=== PATIENT | male | born 1940 | race Caucasian/White ===

== ENCOUNTER 2020-08-03 11:55 | Inpatient (IN) | payer MEDICARE, OTHER, SELFPAY ==
[2020-08-03] VITALS (16 sets, daily range): BP systolic 68–151; BP diastolic 50–94; PULSE 68–97; RESP 17–27; TEMP 36.6–37.1; O2SAT 92–97; BMI 23.7
--- NOTE | 2020-08-03 12:08 | XRR_ITS ---
PROCEDURE INFORMATION: Exam: XR Left Hip with Pelvis when Performed Exam date and time: 08/03/2020 12:22 PM Age: 80 years old Clinical indication: Pain and injury or trauma; Fall; Blunt trauma (contusions or hematomas); Hip pain; Left hip; Injury date: 08/01/20; Additional info: Fall/pain TECHNIQUE: Imaging protocol: XR Left hip with pelvis when performed. Views: 2 or 3 views. COMPARISON: No relevant prior studies available. FINDINGS: Bones/joints: Unremarkable. No acute fracture. Soft tissues: Unremarkable. Metallic surgical clips left pelvis XR/XR hip LT 2-3V wo/w pel* [id number] IMPRESSION: No acute bone abnormality.
--- NOTE | 2020-08-03 12:08 | XRR_ITS ---
PROCEDURE INFORMATION: Exam: XR Lumbosacral Spine, 2 or 3 Views Exam date and time: 08/03/2020 12:22 PM Age: 80 years old Clinical indication: Pain and injury or trauma; Fall; Blunt trauma (contusions or hematomas); Low back pain; Additional info: Fall/pain TECHNIQUE: Imaging protocol: XR of the lumbosacral spine, 2 or 3 views. COMPARISON: No relevant prior studies available. FINDINGS: Bones/joints: There is generalized osteopenia . a compression fracture is seen in the superior endplate of the L3 vertebral body. No additional fractures are documented. Normal alignment. Soft tissues: Unremarkable. XR/XR lumbar spine 2-3V* [id number] IMPRESSION: 1. Compression fracture superior endplate of L3 vertebral body 2. Generalized osteopenia 3. Otherwise negative examination
--- NOTE | 2020-08-03 12:09 | XRR_ITS ---
PROCEDURE INFORMATION: Exam: XR Chest, 1 View Exam date and time: 08/03/2020 12:22 PM Age: 80 years old Clinical indication: Other: Syncope TECHNIQUE: Imaging protocol: XR of the chest Views: 1 view. COMPARISON: No relevant prior studies available. FINDINGS: Lungs: Faint parenchymal density is seen in the right upper lobe. Possible pulmonary fibrosis or interstitial congestion. Pleural space: Unremarkable. No pleural effusion. No pneumothorax. Heart/Mediastinum: Unremarkable. No cardiomegaly. Bones/joints: Unremarkable. Soft tissues: Left chest cardiac pacemaker is in place in good position. XR/XR chest 1V portable [id number] IMPRESSION: 1. No acute findings. 2. Pulmonary fibrosis or interstitial congestion right upper lobe 3. Cardiac pacemaker left anterior chest in good position
--- NOTE | 2020-08-03 12:10 | ECG_ITS ---
[facility] Test Date: 2020-08-03 Pat Name: Josh Padron Department: Room: Gender: Male Scientific Helper: : 1940 Requested By: Jase Prado Order Number: [id number] Shawna MD: Meera Patterson M.D. Measurements Intervals [place] Rate: 67 P: 46 UT: 196 QRS: 2 QRSD: 101 T: 22 QT: 434 QTc: 461 Interpretive Statements SINUS RHYTHM No previous ECG available for comparison Electronically Signed On 08-03-2020 21:26:04 HANDHOLE MACHINE OPERATOR by Meera Patterson M.D. [id number]
--- NOTE | 2020-08-03 12:13 | W.ED.SYNCOPE ---
HPI - Syncope General: Chief Complaint: Syncope Stated Complaint: Lt Hip pain Time Seen by Provider: 08/03/20 11:57 History of Present Illness: HPI narrative: The patient is a 80-year-old male with past medical history atrial fibrillation with pacer placed sometime ago. He comes to the ER complaining of left hip pain after a fall 2 days ago. He says he has been passing out multiple times daily for weeks to months. He had Covid about 2 months ago and has not fully recovered. He has been seeing his primary care physician and was recently taken off metoprolol which helped for a week however he continues to pass out including 3 times today. His says that sometimes he goes from a seated to standing position, takes several steps and then goes blank in the face and falls. She says she is usually able to catch him but a couple days ago she was not and he fell on his left side. He took Tylenol yesterday for pain which improved his pain significantly however he is worried and came to the hospital for evaluation MD complaint: loss of consciousness Associated symptoms: Deny abdominal pain, chest pain or headache(s) Review of Systems General: Reports: 10 or more systems reviewed and unremarkable except in HPI and below Const: Denies: fatigue Eyes: Denies: change in vision, blurry vision or eye redness ENMT: Denies: throat pain, swelling of lips/tongue, ear or mastoid pain or nasal congestion Card: Denies: chest pain, palpitations, edema, dyspnea on exertion or orthopnea Resp: Denies: dyspnea, productive cough or non-productive cough GI: Denies: abdominal pain, diarrhea or GI cramping : Denies: flank pain, urinary frequency or urinary urgency Musc: Denies: neck pain, back pain, extremity pain, joint pain, joint redness, limited range of motion or muscle weakness Skin/Breast: Denies: rash, pruritus, erythema, skin pain or skin tenderness Neuro: Reports: frequent falls; Denies: headache(s), numbness in extremities, weakness in extremities, sensory changes, difficulty walking, dizziness, confusion or Slurred speech present Psych: Denies: anxiety or depression Endo: Denies: polyuria All/Imm: Denies: urticaria, throat swelling or tongue swelling Physical Exam Const: COMMON NORMALS: no acute distress, average body habitus, patient oriented x3, no limitations, healthy appearing, alert and well nourished GENERAL APPEARANCE: cooperative, comfortable, well kempt and well developed ORIENTATION/CONSCIOUSNESS: Yes awake, Yes oriented to person, Yes oriented to place and Yes oriented to time HENMT: COMMON NORMALS: normocephalic, external ears normal and Normal external nose present HEAD & SCALP: normal to inspection and normocephalic NOSE: Normal external nose present EXTERNAL EAR: Yes external ears normal MOUTH: Normal oral and palatal mucosa present THROAT: posterior oropharynx normal Eye: COMMON NORMALS: Equal, round and reactive pupils present and EOMs intact bilaterally GENERAL EYE: appearance normal, both eyes and all related structures PUPIL: Yes Equal, round and reactive pupils present Neck/C-Spine: COMMON NORMALS: full ROM, no lymphadenopathy, no meningeal signs and no JVD GENERAL: Yes normal visual inspection Lymph: LYMPHATIC: no lymphadenopathy noted Chest: COMMONS NORMALS: normal inspection of the chest and normal palpation of entire chest wall Resp: COMMON NORMALS: normal respiratory effort, No retractions, No use of accessory muscles, clear to auscultation bilaterally and percussion normal EFFORT & INSPECTION: Yes able to speak in complete sentences AUSCULTATION: clear to auscultation bilaterally PERCUSSION: percussion normal Cardio: COMMON NORMALS: no JVD, regular rate, regular rhythm, S1 normal heart sound present, S2 normal heart sound present and Peripheral pulses 2+ throughout RATE: regular rate RHYTHM: regular rhythm HEART SOUNDS: S1 normal heart sound present and S2 normal heart sound present PERIPHERAL PULSES: Peripheral pulses 2+ throughout GI: COMMON NORMALS: Normal to inspection, nondistended, normoactive bowel sounds present, Soft to palpation, non-tender and no masses INSPECTION: Yes normal to inspection PALPATION: Yes Soft to palpation : COMMON NORMALS: Yes no CVA tenderness BLADDER/KIDNEY EXAM: Yes no CVA tenderness Back/Pelvis: COMMON NORMALS: no CVA tenderness, thoracic and lumbar spine normal to inspection, no thoracic nor lumbar tenderness and thoraco-lumbar ROM normal Extremity: COMMON NORMALS: normal to inspection, full ROM, capillary refill normal, no joint enlargement and no pedal edema GENERAL: Yes normal exam except as noted Neuro: COMMON NORMALS: patient oriented x3, CN's II-XII intact bilaterally, moves all extremities, no focal motor deficits, no sensory deficits noted and gait normal SENSORIUM/ORIENTATION: Yes alert, Yes oriented to person, Yes oriented to place and Yes oriented to time MENINGEAL SIGNS: Yes no meningeal signs Psych: COMMON NORMALS: mental status grossly normal, Normal thought process present, cooperative, normal affect and speech normal APPEARANCE: Yes well kempt ATTITUDE: Yes calm SPEECH: Yes normal speech THOUGHT PROCESS: Normal thought process present Skin: COMMON NORMALS: no rashes or lesions noted GENERAL SKIN EXAM: no rashes or lesions noted Course Vital Signs: Vital signs: Vital Signs Temperature 97.8 F 08/03/20 12:02 Pulse Rate 73 08/03/20 13:12 Respiratory Rate 18 08/03/20 13:12 Blood Pressure 128/80 08/03/20 13:12 Pulse Oximetry 92 08/03/20 13:12 MDM - Syncope MDM Narrative: Medical decision making narrative: The patient was given a liter of fluids and his orthostatic blood pressure was 68/50 without hardly being able to stand so the pressure was taken while he was sitting. Also he has an L3 compression fracture and a white count of 12.8. Discussed with Dr. Mcgraw who accepts to inpatient for fluids and monitoring Differential Diagnosis: Syncope differential diagnosis: Likely syncope due to orthostatic hypotension and dehydration Lab Data: Labs: Lab Results 08/03/20 08/03/20 08/03/20 Range/Units 12:54 12:54 12:54 WBC 12.8 H (4.0-10.0) 10^3/ uL RBC 4.59 (4.1-5.3) 10^6/u L Hgb 13.6 (11.7-16.6) g/dL Hct 41.6 L (42.0-52.0) % MCV 90.6 (80-94) fL MCH 29.6 (28.0-34.0) pg MCHC 32.7 (30.0-36.0) g/dL RDW 12.8 (12.1-15.1) % Plt Count 260 (130-400) 10^3/c mm MPV 9.2 (7.4-10.4) fL Neut % (Auto) 76.4 % Lymph % (Auto) 9.0 % [place] % (Auto) 10.9 % Eos % (Auto) 1.9 % Baso % (Auto) 0.5 % Neut # (Auto) 9.79 H (1.8-7.7) 10^3/u L Lymph # (Auto) 1.2 (0.8-4.8) 10^3/u L [place] # (Auto) 1.4 H (0.2-0.9) 10^3/u L Eos # (Auto) 0.2 (0.0-0.8) 10^3/u L Baso # (Auto) 0.1 (0.0-0.1) 10^3/u L Nucleated RBC % (a uto) 0 % Nucleated RBCs # 0.0 /100WBC PT 23.60 H (12.1-14.9) SECO NDS INR 2.02 H (0.8-1.2) Sodium 134 L (136-145) mmol/L Potassium 4.2 (3.5-5.1) mmol/L Chloride 101 (98-107) mmol/L Carbon Dioxide 25 (22-29) mmol/L Anion Gap 12.2 (5-19) BUN 16 (8-23) mg/dL Creatinine 1.2 (0.7-1.2) mg/dL GFR Calculation Not Reportable Glucose 125 H (65-115) mg/dL Calculated Osmolal ity 281 L (285-295) mOsm/k g Calcium 9.0 (8.5-10.5) mg/dL Total Bilirubin 1.0 (0.15-1.2) mg/dL AST 36 (0-40) U/L ALT 34 (0-41) U/L Alkaline Phosphata se 83 (40-130) IU/L Troponin T Baselin e (0-15) ng/L NT-Pro-B Natriuret Pep 593 H (0-450) pg/mL Total Protein 5.1 L (6.6-8.7) g/dL Albumin 3.0 L (3.5-5.2) g/dL Globulin 2.1 (1.3-4.6) g/dL Urine Color (Yellow) Urine Appearance (CLEAR) Urine pH (5-7) Ur Specific Gravit y (1.005-1.030) Urine Protein (Negative) Urine Glucose (UA) (Normal) Urine Ketones (Negative) Urine Blood (Negative) Urine Nitrate (Negative) Urine Bilirubin (Negative) Urine Urobilinogen (Negative) mg/dL Ur Leukocyte Nakia ase (Negative) Urine RBC (0-2) /hpf Urine WBC (0-5) /hpf Ur Squamous Epith Cells (0-5) /hpf Calcium Oxalate Cr ystal /hpf Amorphous Sediment /hpf Urine Bacteria (NONE) /hpf Hyaline Casts /lpf Coarse Granular Ca sts /lpf Urine Mucus /hpf 08/03/20 08/03/20 Range/Units 12:54 13:55 WBC (4.0-10.0) 10^3/ uL RBC (4.1-5.3) 10^6/u L Hgb (11.7-16.6) g/dL Hct (42.0-52.0) % MCV (80-94) fL MCH (28.0-34.0) pg MCHC (30.0-36.0) g/dL RDW (12.1-15.1) % Plt Count (130-400) 10^3/c mm MPV (7.4-10.4) fL Neut % (Auto) % Lymph % (Auto) % [place] % (Auto) % Eos % (Auto) % Baso % (Auto) % Neut # (Auto) (1.8-7.7) 10^3/u L Lymph # (Auto) (0.8-4.8) 10^3/u L [place] # (Auto) (0.2-0.9) 10^3/u L Eos # (Auto) (0.0-0.8) 10^3/u L Baso # (Auto) (0.0-0.1) 10^3/u L Nucleated RBC % (a uto) % Nucleated RBCs # /100WBC PT (12.1-14.9) SECO NDS INR (0.8-1.2) Sodium (136-145) mmol/L Potassium (3.5-5.1) mmol/L Chloride (98-107) mmol/L Carbon Dioxide (22-29) mmol/L Anion Gap (5-19) BUN (8-23) mg/dL Creatinine (0.7-1.2) mg/dL GFR Calculation Glucose (65-115) mg/dL Calculated Osmolal ity (285-295) mOsm/k g Calcium (8.5-10.5) mg/dL Total Bilirubin (0.15-1.2) mg/dL AST (0-40) U/L ALT (0-41) U/L Alkaline Phosphata se (40-130) IU/L Troponin T Baselin e 27 H (0-15) ng/L NT-Pro-B Natriuret Pep (0-450) pg/mL Total Protein (6.6-8.7) g/dL Albumin (3.5-5.2) g/dL Globulin (1.3-4.6) g/dL Urine Color Straw (Yellow) Urine Appearance Clear (CLEAR) Urine pH 7 (5-7) Ur Specific Gravit y 1.010 (1.005-1.030) Urine Protein Trace (Negative) Urine Glucose (UA) Norm (Normal) Urine Ketones Negative (Negative) Urine Blood Neg (Negative) Urine Nitrate Negative (Negative) Urine Bilirubin Neg (Negative) Urine Urobilinogen 1 H (Negative) mg/dL Ur Leukocyte Nakia ase Negative (Negative) Urine RBC None (0-2) /hpf Urine WBC 0-4 H (0-5) /hpf Ur Squamous Epith Cells 0-4 H (0-5) /hpf Calcium Oxalate Cr ystal 0-4 H /hpf Amorphous Sediment 1+ /hpf Urine Bacteria Trace (NONE) /hpf Hyaline Casts 5-10 H /lpf Coarse Granular Ca sts 0-4 H /lpf Urine Mucus 1+ /hpf Discharge Plan Discharge Prescriptions: No Action losartan 50 mg tablet 25 mg PO BID@, RF: 0 atorvastatin 40 mg tablet 40 mg PO DAILY@18 RF: 0 carvedilol 6.25 mg tablet 6.25 mg PO BID@ RF: 0 amiodarone 200 mg tablet See Rx Instructions .ROUTE .COMPLEX RF: 0 potassium chloride 20 mEq tablet,ER particles/crystals 40 meq PO BID@, RF: 0 magnesium 250 mg Tablet 500 mg PO BID@, RF: 0 Vitamin D3 25 mcg (1,000 unit) Capsule 25 mcg PO DAILY@18 RF: 0 Calcium-Vitamin D 600 mg calcium- 400 unit Tablet 1 tab PO BID@09 RF: 0 Xarelto 20 mg tablet 20 mg PO DAILY@18 RF: 0 Coding Level of Care Code ED Literacy Teacher for Chg Fwd Exam Comprehensive
[2020-08-03] MEDS: acetaminophen 325 mg Tablet 650 MG PO (12:48)
[2020-08-03] MEDS: sodium chloride 0.9% 500 ML 999 ML IV (12:56)
[2020-08-03 13:12] LABS: Basophils # 0.1 10^3/uL (0.0-0.1); Basophils % 0.5 %; Eosinophils # 0.2 10^3/uL (0.0-0.8); Eosinophils % 1.9 %; Hematocrit 41.6 % (42.0-52.0); Hemoglobin 13.6 g/dL (11.7-16.6); Lymphocytes # 1.2 10^3/uL (0.8-4.8); Mean Corpuscular HGB Conc 32.7 g/dL (30.0-36.0); Mean Corpuscular Hemoglobin 29.6 pg (28.0-34.0); Mean Corpuscular Volume 90.6 fL (80-94); Mean Platelet Volume 9.2 fL (7.4-10.4); Monocytes # 1.4 10^3/uL (0.2-0.9); Monocytes % 10.9 %; Neutrophils # 9.79 10^3/uL (1.8-7.7); Neutrophils % 76.4 %; Nucleated Red Blood Cells % 0 %; Platelet Count 260 10^3/cmm (130-400); Red Blood Count 4.59 10^6/uL (4.1-5.3); Red Cell Distribution Width 12.8 % (12.1-15.1); White Blood Count 12.8 10^3/uL (4.0-10.0)
[2020-08-03 13:20] LABS: INR 2.02 (0.8-1.2)
[2020-08-03 13:24] LABS: Troponin(5th) Baseline 27 ng/L (0-15)
[2020-08-03 13:33] LABS: Alanine Aminotransferase 34 U/L (0-41); Alkaline Phosphatase 83 IU/L (40-130); Anion Gap 12.2 (5-19); Aspartate Amino Transferase 36 U/L (0-40); Blood Urea Nitrogen 16 mg/dL (8-23); Carbon Dioxide 25 mmol/L (22-29); Chloride 101 mmol/L (98-107); Globulin 2.1 g/dL (1.3-4.6); Glucose 125 mg/dL (65-115); NT Pro B Type Natriuretic Pept 593 pg/mL (0-450); Osmolality Calculated 281 mOsm/kg (285-295); Potassium 4.2 mmol/L (3.5-5.1); Sodium 134 mmol/L (136-145); Total Protein 5.1 g/dL (6.6-8.7)
--- NOTE | 2020-08-03 14:10 | ECG_ITS ---
[facility] Test Date: 2020-08-03 Pat Name: Josh Padron Department: Room: Gender: Male Education Program Manager: : 1940 Requested By: Jase Prado Order Number: [id number] Shawna MD: Meera Patterson M.D. Measurements Intervals [place] Rate: 95 P: -61 WI: 143 QRS: -49 QRSD: 109 T: 31 QT: 397 QTc: 500 Interpretive Statements ECTOPIC ATRIAL RHYTHM PATTERN CONSISTENT WITH PULMONARY DISEASE LEFT ANTERIOR FASCICULAR BLOCK [QRS AXIS <= -45, QR IN I, RS IN II] Compared to ECG 08/03/2020 12:18:30 Ectopic atrial rhythm now present Left anterior fascicular block now present Sinus rhythm no longer present Electronically Signed On 08-03-2020 21:31:45 BUTTON RECLAIMER by Meera Patterson M.D. [id number]
[2020-08-03 14:40] LABS: Urine Appearance Clear (CLEAR); Urine Color Straw (Yellow); pH Urine 7 (5-7)
[2020-08-03 14:41] LABS: Add Urine Microscopic? YES; Bilirubin Urine Neg (Negative); Blood Urine Neg (Negative); Glucose Urine UA Norm (Normal); Ketones Urine Negative (Negative); Leukocyte Esterase Urine Negative (Negative); Nitrate Urine Negative (Negative); Protein Urine Trace (Negative); Urobilinogen Urine 1 mg/dL (Negative)
[2020-08-03 14:42] LABS: Amorphous Sediment Urine 1+ /hpf; Bacteria Urine TRACE /hpf; Calcium Oxalate Crystals Urine 0-4 /hpf; Mucus Urine 1+ /hpf; Squamous Epithelial Cell Urine 0-4 /hpf (0-5); WBC Urine 0-4 /hpf (0-5)
[2020-08-03 14:43] LABS: Coarse Granular Casts Urine 0-4 /lpf
[2020-08-03 14:44] LABS: Add Urine Culture? No
--- NOTE | 2020-08-03 17:11 | PC.NURSE ---
PATIENT RECEIVED FROM ER VIA [facility]. RASH NOTED TO BILATERAL ANKLES. NO COMPLAINTS FROM PATIENT OR . WILL EVALUATE PLAN WITH DR. DIAS.
--- NOTE | 2020-08-03 17:30 | P.HP_ITS ---
Providers/Chief Complaint Admitting Physician: Lynette Mcgraw MD Chief Complaint: Lt Hip pain History of Present Illness Josh Padron is a 80 year old male with PMG A fib on a/c s/p cardoversion and PPM (one year), follows at [place] presenting with c/o having sustained a fall at home. states that patient had covid pneumonia 2 months ao, was treated conservatively at home, is on 02 since then, has had some generalized weakness and has had to assit him with ambulation few times. On Saturday (today is saturday), patient was walking outside his house when he suddenly passed out. Descrbed as feeling light headed and slumping to the ground. Patient denies any chest pain or palpitations during this time. Episode lasted few seconds and then returned to baseline. No incontinence or seizure like activity. Since this time he has had increasing back pain to the point where he is unable to get out of bed due to pain. and son took him to PCP office this morning from where he was directed to come to ER. While walking from home to car, patient had 3 episodes of syncope again. Patient has had similar episodes approx one month ago at which time his optical laboratory mechanic had discontinued amlodipine and reduced dose of losartan to 25mg daily from 50mg daily. It apppeared to have helped for a short while. Home BP readings show some SBP numbers in the 80s. no resdiaul neurolgical weakness. In the ER today he was found to have orthostatsic SBP drop to 68 systolic, improved after fluid resuscitation. At time of evaluation his SBP is 140. Also has vertebral fracture Review of Systems General: Reports: 10 or more systems reviewed and unremarkable except in HPI and below Const: Denies: fever(s), chills or body aches Eyes: Denies: change in vision, blurry vision or photophobia ENMT: Reports: hoarseness; Denies: throat pain, enlarged tonsils, odynophagia or nasal congestion Card: Denies: chest pain, palpitations, irregular heart rhythm, edema, swelling of feet/ankles, lightheadedness, pre-syncope, dyspnea on exertion or orthopnea Resp: Denies: dyspnea, productive cough, non-productive cough, wheezing, stridor, pain on inspiration, change in phlegm color, hemoptysis or chest congestion GI: Denies: abdominal pain, nausea, vomiting, hematemesis, coffee ground emesis, dysphagia, heartburn, diarrhea, constipation, GI cramping, change in stool character, hematochezia or melena : Denies: flank pain, dysuria, urinary frequency, urinary urgency, urinary hesitancy or hematuria Musc: Denies: neck pain, back pain, extremity pain, joint swelling, joint warmth or deformity Neuro: Denies: headache(s), numbness in extremities, weakness in extremities, sensory changes, difficulty walking, frequent falls, dizziness, vertigo, behavioral changes, Slurred speech present or seizure-like activity Psych: Denies: anxiety, depression, suicidal ideation or homicidal ideation Endo: Denies: polyuria, polydipsia, tired all the time, cold intolerance or hot flashes Gerber/Lymph: Denies: easy bruising or easy bleeding Medications/Allergies Home Medications Medication Instructions Recorded Confirmed Last Taken Type amiodarone See Rx Instructions .ROUTE .COMPLEX 08/03/20 08/03/20 08/02/20 History atorvastatin 40 mg PO DAILY@08/03/20 08/03/20 08/02/20 History calcium carbonate-vit D3-min 1 tab PO BID@08/03/20 08/03/20 08/03/20 History [Calcium-Vitamin D] carvedilol 6.25 mg PO BID@,08/03/20 08/03/20 08/02/20 History cholecalciferol (vitamin D3) 25 mcg PO DAILY@08/03/20 08/03/20 08/02/20 History [Vitamin D3] losartan 25 mg PO BID@,08/03/20 08/03/20 08/02/20 History magnesium 500 mg PO BID@,08/03/20 08/03/20 08/02/20 History potassium chloride 40 meq PO BID@,08/03/20 08/03/20 08/02/20 History rivaroxaban [Xarelto] 20 mg PO DAILY@18 08/03/20 08/03/20 08/02/20 History Allergies Allergy/AdvReac Type Severity Reaction Status Date / Time No Known Allergies Allergy Verified 08/03/20 12:47 PFSH Acute PFSH: Medical History (Updated 08/04/20 @ 06:32 by Lynette Mcgraw MD) A-fib COVID-19 Pacemaker Family History (Updated 08/04/20 @ 06:27 by Lynette Mcgraw MD) Other Hypertension Social History (Updated 08/04/20 @ 06:27 by Lynette Mcgraw MD) Smoking and tobacco status: never smoked Vitals/I&O/Wt Last Vital Signs Temp 98.3 F 08/04/20 04:00 Pulse 66 08/04/20 04:00 Resp 20 H 08/04/20 04:00 BP 134/80 08/04/20 04:00 Pulse Ox 94 08/04/20 04:00 08/03/20 08/03/20 08/04/20 14:59 22:59 06:59 Intake Total 500 / 500 240 / 740 Output Total 500 / 500 Balance 500 / 500 -260 / 240 Weight last 48 hrs Weight 77.111 kg Physical Exam Const: COMMON NORMALS: no acute distress, average body habitus, patient oriented x3, no limitations, healthy appearing, alert and well nourished HENMT: COMMON NORMALS: normocephalic and atraumatic HEAD & SCALP: normocephalic and atraumatic Eye: COMMON NORMALS: Equal, round and reactive pupils present, EOMs intact bilaterally, conjunctivae normal and no scleral icterus CONJUNCTIVA: Yes conjunctivae normal PUPIL: Yes Equal, round and reactive pupils present Neck/C-Spine: COMMON NORMALS: no JVD Resp: COMMON NORMALS: normal respiratory effort, No retractions, No use of accessory muscles, clear to auscultation bilaterally and percussion normal AUSCULTATION: clear to auscultation bilaterally PERCUSSION: percussion normal Cardio: COMMON NORMALS: no JVD, regular rate, regular rhythm, S1 normal heart sound present, S2 normal heart sound present, No gallops present (Cardio), No clicks present (Cardio), No murmurs present (Cardio), No rub (Cardio) and Peripheral pulses 2+ throughout RATE: regular rate RHYTHM: regular rhythm HEART SOUNDS: S1 normal heart sound present and S2 normal heart sound present PERIPHERAL PULSES: Peripheral pulses 2+ throughout GI: COMMON NORMALS: Normal to inspection, nondistended, normoactive bowel sounds present, Soft to palpation, non-tender, No hepatosplenomegaly present, no masses and no bruits PALPATION: Yes Soft to palpation and Yes No hepa tosplenomegaly present Extremity: COMMON NORMALS: normal to inspection, full ROM, capillary refill normal, no joint enlargement, no clubbing, cyanosis or edema, no calf tenderness and no pedal edema Neuro: COMMON NORMALS: patient oriented x3, CN's II-XII intact bilaterally, moves all extremities, no focal motor deficits, no sensory deficits noted, deep tendon reflexes 2+ bilaterally and gait normal SENSORIUM/ORIENTATION: Yes alert Psych: COMMON NORMALS: mental status grossly normal, Normal thought process present, cooperative, normal affect, speech normal, activity/motor behavior normal, denies hallucinations, denies homicidal ideation and denies suicidal ideation SPEECH: Yes normal speech THOUGHT PROCESS: Normal thought process present Skin: COMMON NORMALS: no rashes or lesions noted, no wounds, turgor normal, no jaundice, no petechiae and no mottling GENERAL SKIN EXAM: no rashes or lesions noted and turgor normal Data : 08/04/20 05:18 08/03/20 12:54 A&P Assessment and plan (1) Recurrent syncope: likely related to orthostatsic hypotension check orthstatics BID CT head, echocardiogram, carotid doppler ordered no h/o seizure like activity reduce carvedilol to 3.125 mg BID, hold losartan PPM interrogation Status: Acute (2) Vertebral fracture: L3 fracture from mechanical fall norco/lidocaine patch for pain control PT/OT evaluation Status: Acute Qualifiers: Encounter type: initial encounter Fracture of vertebra location: lumbar Lumbar vertebra fracture level: L3 Fracture type: closed Fracture m orphology: unspecified fracture morphology Qualified Code(s): S32.039A - Unspecified fracture of third lumbar vertebra, initial encounter for closed fracture (3) A-fib: Status: Acute Qualifiers: Atrial fibrillation type: longstanding persistent Qualified Code(s): I48.11 - Longstanding persistent atrial fibrillation Additional A&P Information dvt ppx: on xarelto full code Attestations Medical Necessity Statement*: Antcipate >2midnight stay for evaluation of syncope, orthostatic hypotension evalution and management Coding Level of Care Code Acute Agricultural Engineering Technicians for [facility] Fwd Diagnoses Recurrent syncope R55 Vertebral fracture S32.039A Encounter type: initial encounter Fracture of vertebra location: lumbar Lumbar vertebra fracture level: L3 Fracture type: closed Fracture morphology: unspecified fracture morphology A-fib I48.11 Atrial fibrillation type: longstanding persistent
--- NOTE | 2020-08-03 18:10 | ECG_ITS ---
[facility] Test Date: 2020-08-03 Pat Name: Josh Padrno Department: Room: 105 Gender: Male Data Processing Specialist: : 1940 Requested By: Jase Prado Order Number: [id number] Shawna MD: Meera Patterson M.D. Measurements Intervals [place] Rate: 70 P: -17 ID: [id number] QRS: -42 QRSD: 110 T: 28 QT: 419 QTc: 453 Interpretive Statements SINUS RHYTHM MARKED LEFT AXIS DEVIATION [QRS AXIS < -30] PATTERN CONSISTENT WITH PULMONARY DISEASE Compared to ECG 08/03/2020 14:10:59 Left-axis deviation now present Ectopic atrial rhythm no longer present Left anterior fascicular block no longer present Electronically Signed On 08-03-2020 21:32:26 BONDERIZER OPERATOR by Meera Patterson M.D. [id number]
--- NOTE | 2020-08-03 18:37 | CTR_ITS ---
PROCEDURE INFORMATION: Exam: CT Head Without Contrast Exam date and time: 08/03/2020 7:16 PM Age: 80 years old Clinical indication: Syncope and collapse; Additional info: Recurrent syncope TECHNIQUE: Imaging protocol: Computed tomography of the head without contrast. Radiation optimization: All CT scans at this facility use at least one of these dose optimization techniques: automated exposure control; mA and/or kV adjustment per patient size (includes targeted exams where dose is matched to clinical indication); or iterative reconstruction. COMPARISON: No relevant prior studies available. RADIATION DOSE METRICS: Total DLP (mGy-cm): 895.68 FINDINGS: Brain: Mild atrophy and mild white matter chronic microvascular changes are noted. No hemorrhage or CT evidence of acute infarction is seen. Cerebral ventricles: No ventriculomegaly. Bones/joints: Unremarkable. No acute fracture. Paranasal sinuses: Mild left maxillary and bilateral posterior ethmoid sinusitis is appreciated. Mastoid air cells: Visualized mastoid air cells are well aerated. Soft tissues: Unremarkable. CT/CT head wo con* [id number] IMPRESSION: No acute intracranial abnormality. Mild sinusitis. Radiation Dose CTDIVOL = (mGy): DLP = 895.68 (mGy-cm)
[2020-08-03 18:43] LABS: Troponin 5 2HR 22.82 ng/L (0-15)
[2020-08-03 18:56] LABS: Troponin 5 2HR Delta -4.18 ABS# (0-10)
[2020-08-03] MEDS: amiodarone 200 mg Tablet PO (19:23)
[2020-08-03 19:43] LABS: Troponin 5 6HR 22.95 ng/L (0-15)
[2020-08-03 19:45] LABS: Troponin 5 6HR Delta -4.05 ng/L (0-12)
[2020-08-04] VITALS (29 sets, daily range): BP systolic 63–152; BP diastolic 42–96; PULSE 66–92; RESP 16–26; TEMP 36.2–36.8; O2SAT 86–97
[2020-08-04 06:09] LABS: Basophils # 0.1 10^3/uL (0.0-0.1); Basophils % 0.6 %; Eosinophils # 0.3 10^3/uL (0.0-0.8); Eosinophils % 3.7 %; Hematocrit 36.4 % (42.0-52.0); Hemoglobin 11.8 g/dL (11.7-16.6); Lymphocytes % 11.2 %; Mean Corpuscular HGB Conc 32.4 g/dL (30.0-36.0); Mean Corpuscular Hemoglobin 29.9 pg (28.0-34.0); Mean Corpuscular Volume 92.2 fL (80-94); Mean Platelet Volume 9.3 fL (7.4-10.4); Monocytes # 1.3 10^3/uL (0.2-0.9); Monocytes % 14.1 %; Neutrophils # 6.46 10^3/uL (1.8-7.7); Neutrophils % 69.5 %; Nucleated Red Blood Cells % 0 %; Platelet Count 199 10^3/cmm (130-400); Red Blood Count 3.95 10^6/uL (4.1-5.3); Red Cell Distribution Width 12.8 % (12.1-15.1); White Blood Count 9.3 10^3/uL (4.0-10.0)
[2020-08-04 06:36] LABS: Alanine Aminotransferase 33 U/L (0-41); Albumin Level 2.5 g/dL (3.5-5.2); Alkaline Phosphatase 84 IU/L (40-130); Anion Gap 9.1 (5-19); Aspartate Amino Transferase 38 U/L (0-40); Blood Urea Nitrogen 19 mg/dL (8-23); Calcium 8.6 mg/dL (8.5-10.5); Carbon Dioxide 27 mmol/L (22-29); Chloride 105 mmol/L (98-107); Creatinine Clr Calc Pharmacy 68.0465; Globulin 2.5 g/dL (1.3-4.6); Glucose 113 mg/dL (65-115); Osmolality Calculated 287 mOsm/kg (285-295); Potassium 4.1 mmol/L (3.5-5.1); Sodium 137 mmol/L (136-145); Total Bilirubin 0.8 mg/dL (0.15-1.2)
[2020-08-04] MEDS: carvedilol 3.125 mg Tablet PO (09:29)
[2020-08-04] MEDS: potassium chloride ER 20 mEq Tablet 40 MEQ PO ×2 (09:29→20:08)
[2020-08-04] MEDS: lidocaine 5% Patch 1 PATCH TOPICAL ×2 (09:30→20:51)
--- NOTE | 2020-08-04 11:16 | PC.CHAP ---
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 visit [] Patient/Family/Request visit [] Outpatient visit [] Follow-up visit [] Physician referral [] Code/Alert [x] Routine visit [] Staff referral [] Actively dying [] Patient sleeping [] Family support [] [] Out of room [] Palliative care [] [x] Receiving care in room [] Pre-surgical visit [] Trauma [] Long length of stay [] ICU visit [] Other: Relational/Emotional Strength [] Patient feels connected with others/family/visitors/staff [x] Distress [] Loneliness/isolation [] Abandonment Spirituality of Patient [x] Person of Kat[place] [] Attends Baptism of their [place] [x] Believes in Prayer [] Reads Bible or Restorationism materials [] There are Spiritual issues to be addressed 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 Interventions [x] Prayer [x] Active listening [x] Non-anxious presence [x] Spiritual/emotional support [] Crisis/trauma care [x] Spiritual counseling [] Bereavement support [] Provided bereavement packet [] Provided Bible/devotional materials [] Provided toy/stuffed animal, coloring book to patient or family member [] Provided Communion [] Anointing/[place] [] Salvation [x] Completed spiritual assessment [] Other: Impact on Illness or Injury [] Angry [] Fearful [x] Anxious [] Often cries [] Exhaustion [] Unable to work [] Unable to attend hoahaoism [] Unable to walk/stand [] Unable to read [] Unable to drive [] Unable to eat/drink [] Unable to sleep [] Unable to be with family [] Patient intubated [] Other: Summary in pain broken [place], doesn't know about any procedures, has good attitude, or when he can go home Time spent with patient 10 mins
[2020-08-04] MEDS: sodium chloride 0.9% 1,000 ML 75 ML IV (14:01)
[2020-08-04] MEDS: acetaminophen 325 mg Tablet 650 MG PO (18:04)
[2020-08-04] MEDS: atorvastatin 40 mg Tablet PO (18:05)
[2020-08-04] MEDS: rivaroxaban 10 mg Tablet 20 MG PO (18:05)
--- NOTE | 2020-08-04 18:07 | P.PN_ITS ---
Subjective Subjective: Interval history: This morning, patient remains orthostatic positive, he does feel little bit weak when changing positions, denies lightheadedness, dizziness, no repeat passing out spells Vitals/I&O/Wt Last Vital Signs Temp 97.3 F L 08/04/20 17:00 Pulse 68 08/04/20 17:00 Resp 17 08/04/20 17:00 BP 134/75 08/04/20 17:00 Pulse Ox 94 08/04/20 17:00 08/04/20 08/04/20 08/04/20 06:59 14:59 22:59 Intake Total 254 / 254 Output Total 400 / 900 Balance -400 / -160 254 / 254 Weight last 48 hrs Weight 77.111 kg Physical Exam Const: COMMON NORMALS: no acute distress and patient oriented x3 HENMT: COMMON NORMALS: normocephalic HEAD & SCALP: normocephalic Neck/C-Spine: COMMON NORMALS: no JVD Resp: COMMON NORMALS: normal respiratory effort, No retractions, No use of accessory muscles and clear to auscultation bilaterally AUSCULTATION: clear to auscultation bilaterally Cardio: COMMON NORMALS: no JVD, regular rate, regular rhythm, S1 normal heart sound present and S2 normal heart sound present RATE: regular rate RHYTHM: regular rhythm HEART SOUNDS: S1 normal heart sound present and S2 normal heart sound present GI: COMMON NORMALS: Normal to inspection, nondistended, normoactive bowel sounds present, Soft to palpation, non-tender, No hepatosplenomegaly present, no masses and no bruits PALPATION: Yes Soft to palpation and Yes No hepatosplenomegaly present Extremity: COMMON NORMALS: capillary refill normal, no clubbing, cyanosis or edema, no calf tenderness and no pedal edema Neuro: COMMON NORMALS: patient oriented x3 Psych: COMMON NORMALS: mental status grossly normal Data : 08/04/20 05:18 08/04/20 05:18 A&P Assessment and plan (1) Recurrent syncope: likely related to orthostatsic hypotension check orthstatics BID CT head shows mild atrophy, mild white matter chronic microvascular changes cardiac echocardiogram shows EF Which is borderline normal, which abnormalities are difficult to assess, normal diastolic function, RVSP 35-40 Carotid artery ultrasound no significant ICA stenosis no h/o seizure like activity Hold Coreg, hold losartan PPM interrogation Continue IV fluids Status: Acute (2) Vertebral fracture: L3 fracture from mechanical fall norco/lidocaine patch for pain control PT/OT evaluation Status: Acute Qualifiers: Encounter type: initial encounter Fracture of vertebra location: lumbar Lumbar vertebra fracture level: L3 Fracture type: closed Fracture morphology: unspecified fracture morphology Qualified Code(s): S32.039A - Unspecified fracture of third lumbar vertebra, initial encounter for closed fracture (3) A-fib: Status: Acute Qualifiers: Atrial fibrillation type: longstanding persistent Qualified Code(s): I48.11 - Longstanding persistent atrial fibrillation Additional A&P Information dvt ppx: on xarelto full code Attestations Medical Necessity Statement*: Patient course hospitalization, inpatient, greater than 2 midnights, for orthostatic hypotension, recurrent syncope Coding Level of Care Code Acute Supervisor Sawing And Assembly for [facility] Fwd Diagnoses Recurrent syncope R55 Vertebral fracture S32.039A Encounter type: initial encounter Fracture of vertebra location: lumbar Lumbar vertebra fracture level: L3 Fracture type: closed Fracture morphology: unspecified fracture morphology A-fib I48.11 Atrial fibrillation type: longstanding persistent
--- NOTE | 2020-08-04 18:37 | USCV_ITS ---
NereidaJosh taylor Age: 80 Gender: M : 1940 Exam Date: 08/04/2020 06:18 Ordering Phys: Lynette Mcgraw MD Technologist: Marilyn Prakash Exam Location: [facility] [place] Indication: SYNCOPE Risk Factors: Previous Vascular Surgery: Right Brachial BP: / Left Brachial BP: / Right Left Velocity (cm/s) Spectral Plaque Velocity (cm/s) Spectral Plaque Syst/Diast Broadening Syst/Diast Broadening 52.90/ 14.30 Prox CCA 60.60 / 16.40 56.00/ 13.20 Mid CCA 48.60 / 12.60 40.40/ 21.40 Distal CCA 49.80 / 13.90 24.70/ 12.80 Prox ICA 32.80 / 13.20 36.00/ 14.20 Mid ICA 42.90 / 15.80 31.80/ 13.30 Distal ICA 46.50 / 19.00 53.20 ECA 56.80 0.64 ICA/CCA 0.96 Antegrade Vertebral Antegrade 44.60/ 9.80 cm/s 32.50/ 8.50 cm/s Tri Subclavian Tri 62.00 33.00 FINDINGS Comparison: none available. No significant elevation of systolic or diastolic velocities. Scattered mild calcified plaque in the bifurcations. Bilateral antegrade vertebral arteries. CONCLUSIONS Bilateral ICA stenosis less than 50%. Dr. Prerna Duff DO (Electronically Signed) Final Date: 04 August 2020 08:41 S
--- NOTE | 2020-08-04 18:37 | USCV_ITS ---
Josh Padron Age: 80 Gender: M : 1940 Exam Date: 08/04/2020 06:03 Ordering Phys: Lynette Mcgraw MD Technologist: Marilyn Prakash [place]am Location[place] [facility] [place] Indication: SYNCOPE BP: 129 / 76 HR: 71 Rhythm: Sinus Technical Quality: Adequate MEASUREMENTS (Male / Female) Normal Values 2D ECHO LV Diastolic Diameter PLAX 3.9 cm 4.2 - 5.9 / 3.9 - 5.3 cm LV Systolic Diameter PLAX 3.6 cm LV Chamber Size 3.3 cm IVS Diastolic Thickness 1.6 cm 0.6 - 1.0 / 0.6 - 0.9 cm IVS Systolic Thickness 1.1 cm LVPW Diastolic Thickness 1.2 cm 0.6 - 1.0 / 0.6 - 0.9 cm LVPW Systolic Thickness 1.8 cm RV Chamber Size 3.1 cm LVOT Diameter 2.0 cm LV Ejection Fraction 2D Teich 18.6 % LV Ejection Fraction MOD 2C 23.2 % LV Ejection Fraction 2C AL 19.7 % LA Diameter 2.3 cm LA Width 3.1 cm LA Height 4.0 cm RA Width 2.7 cm RA Height 3.5 cm M-MODE LV Diastolic Diameter MM 5.2 cm 4.2 - 5.9 / 3.9 - 5.3 cm LV Systolic Diameter MM 3.2 cm LV Ejection Fraction MM Teich 69.6 % IVS Diastolic Thickness MM 0.9 cm 0.6 - 1.0 / 0.6 - 0.9 cm IVS Systolic Thickness MM 1.2 cm LVPW Diastolic Thickness MM 1.0 cm 0.6 - 1.0 / 0.6 - 0.9 cm LVPW Systolic Thickness MM 1.5 cm Aortic Annulus Diameter 3.4 cm LA Ao Ratio MM 0.8 MV E Point Septal Separation 0.8 cm DOPPLER AV Peak Velocity 149.0 cm/s LVOT Peak Velocity 107.0 cm/s AV Area Cont Eq vti 2.2 cm squared AV Area Cont Eq pk 2.3 cm squared MV Area PHT 3.0 cm squared Mitral E to A Ratio 1.1 MV E' Velocity 44.0 cm/s Mitral E to MV E' Ratio 5.9 Mitral E to LV E' Lateral Ratio 6.1 Mitral E to LV E' Septal Ratio 5.7 TR Peak Velocity 302.1 cm/s TR Peak Gradient 36.5 mmHg TR Mean Velocity 208.9 cm/s TR Mean Gradient 21.7 mmHg TR Velocity Time Integral 87.9 cm TV Peak E Velocity 55.0 cm/s Right Atrial Pressure 3.0 mmHg Pulmonary Artery Systolic Pressu 39.5 mmHg PV Peak Velocity 82.0 cm/s RV Acceleration Time 0.2 s RV Ejection Time 0.4 s RV AcT/ET 0.5 FINDINGS Left Ventricle Normal left ventricular size and wall thickness. Grossly LV systolic function appears to be borderline normal. Regional wall motion abnormalities cannot be assessed because of limited visualization. Normal left ventricular wall thickness. Normal diastolic filling pattern. Right Ventricle Not well-visualized. Right Atrium The right atrium is normal in size. Left Atrium The left atrium is normal in size. Mitral Valve Grossly normal. No significant mitral regurgitation or stenosis is noted. Aortic Valve Grossly normal. No significant aortic stenosis is present. There is no aortic regurgitation. Tricuspid Valve Structurally normal tricuspid valve without significant stenosis or regurgitation. RVSP is 35 to 40 mmHg. This is consistent with mild pulmonary hypertension. Pulmonic Valve Not well-visualized. Pericardium Normal pericardium without effusion. Aorta Normal ascending aorta dimension. CONCLUSIONS This is a limited quality echocardiogram. LV systolic function appears to be grossly borderline normal. Regional wall motion abnormalities cannot be assessed because of limited visualization. Normal diastolic function. No gross abnormality of valvular structures is noted. RVSP is 35 to 40 mmHg. This is consistent with mild pulmonary hypertension. No comparison studies are available. Aric Montana MD (Electronically Signed) Final Date: 04 August 2020 12:52 S
[2020-08-05] VITALS (13 sets, daily range): BP systolic 71–171; BP diastolic 48–102; PULSE 66–106; RESP 16–24; TEMP 36.6–36.7; O2SAT 94–98
[2020-08-05] MEDS: sodium chloride 0.9% 1,000 ML 75 ML IV ×2 (02:17→17:05)
[2020-08-05 05:41] LABS: Basophils # 0.1 10^3/uL (0.0-0.1); Basophils % 0.6 %; Eosinophils # 0.3 10^3/uL (0.0-0.8); Eosinophils % 2.7 %; Hematocrit 37.5 % (42.0-52.0); Hemoglobin 12.2 g/dL (11.7-16.6); Lymphocytes % 10.9 %; Mean Corpuscular HGB Conc 32.5 g/dL (30.0-36.0); Mean Corpuscular Hemoglobin 29.6 pg (28.0-34.0); Mean Platelet Volume 9.1 fL (7.4-10.4); Monocytes # 1.2 10^3/uL (0.2-0.9); Monocytes % 12.9 %; Neutrophils # 6.65 10^3/uL (1.8-7.7); Neutrophils % 71.9 %; Nucleated Red Blood Cells % 0 %; Platelet Count 208 10^3/cmm (130-400); Red Blood Count 4.12 10^6/uL (4.1-5.3); Red Cell Distribution Width 12.6 % (12.1-15.1); White Blood Count 9.3 10^3/uL (4.0-10.0)
[2020-08-05 06:04] LABS: Lactate (Lactic Acid level) 0.9 mmol/L (0.5-2.2)
[2020-08-05 06:16] LABS: NT Pro B Type Natriuretic Pept 872 pg/mL (0-450); Procalcitonin 0.09 ng/mL (0-0.5)
[2020-08-05 06:28] LABS: Alanine Aminotransferase 28 U/L (0-41); Albumin Level 2.5 g/dL (3.5-5.2); Alkaline Phosphatase 71 IU/L (40-130); Aspartate Amino Transferase 26 U/L (0-40); Blood Urea Nitrogen 18 mg/dL (8-23); C Reactive Protein 85.3 mg/L (0.0-4.9); Calcium 8.8 mg/dL (8.5-10.5); Carbon Dioxide 25 mmol/L (22-29); Chloride 105 mmol/L (98-107); Creatine Phosphokinase 24 U/L (39-308); Creatinine Clr Calc Pharmacy 76.5523; Globulin 2.5 g/dL (1.3-4.6); Glucose 111 mg/dL (65-115); Magnesium 1.7 mg/dL (1.7-2.3); Osmolality Calculated 287 mOsm/kg (285-295); Phosphorus 2.9 mg/dL (2.5-4.5); Sodium 137 mmol/L (136-145); Total Bilirubin 0.7 mg/dL (0.15-1.2)
[2020-08-05] MEDS: potassium chloride ER 20 mEq Tablet 40 MEQ PO ×2 (09:00→18:45)
[2020-08-05] MEDS: acetaminophen 325 mg Tablet 650 MG PO ×2 (09:01→17:02)
[2020-08-05] MEDS: lidocaine 5% Patch 1 PATCH TOPICAL (09:02)
[2020-08-05 10:26] LABS: Folate Level 15.3 ng/mL (4.5-32.2)
[2020-08-05 10:27] LABS: Vitamin B12 279 pg/mL (232-1245)
[2020-08-05 10:47] LABS: Erythrocyte Sedimentation Rate 24 mm/hr (0-10)
[2020-08-05 11:44] LABS: Estmated Average Glucose 114; Hemoglobin A1C 5.6 % (4.0-6.0)
[2020-08-05] MEDS: atorvastatin 40 mg Tablet PO (17:07)
[2020-08-05] MEDS: rivaroxaban 10 mg Tablet 20 MG PO (17:07)
--- NOTE | 2020-08-05 17:32 | PM.PN ---
Subjective Subjective: Interval history: This morning, patient has no complaints, no fevers, no chills, no nausea, no vomiting, remains profoundly orthostatic, all blood pressure medications have been held, receiving IV fluids Vitals/I&O/Wt Last Vital Signs Temp 97.8 F 08/05/20 12:00 Pulse 97 08/05/20 17:00 Resp 20 H 08/05/20 12:00 BP 171/102 08/05/20 17:00 Pulse Ox 98 08/05/20 10:03 08/05/20 08/05/20 08/05/20 06:59 14:59 22:59 Intake Total 1427 / 2635 340 / 340 1000 / 1340 Balance 1427 / 2235 340 / 340 1000 / 1340 Physical Exam Const: COMMON NORMALS: no acute distress and patient oriented x3 HENMT: COMMON NORMALS: normocephalic HEAD & SCALP: normocephalic Neck/C-Spine: COMMON NORMALS: no JVD Resp: COMMON NORMALS: normal respiratory effort, No retractions, No use of accessory muscles and clear to auscultation bilaterally AUSCULTATION: clear to auscultation bilaterally Cardio: COMMON NORMALS: no JVD, regular rate, regular rhythm, S1 normal heart sound present and S2 normal heart sound present RATE: regular rate RHYTHM: regular rhythm HEART SOUNDS: S1 normal heart sound present and S2 normal heart sound present GI: COMMON NORMALS: Normal to inspection, nondistended, normoactive bowel sounds present, Soft to palpation, non-tender, No hepatosplenomegaly present, no masses and no bruits PALPATION: Yes Soft to palpation and Yes No hepatosplenomegaly present Extremity: COMMON NORMALS: capillary refill normal, no clubbing, cyanosis or edema, no calf tenderness and no pedal edema Neuro: COMMON NORMALS: patient oriented x3 Psych: COMMON NORMALS: mental status grossly normal Data : 08/05/20 05:28 08/05/20 05:28 A&P Assessment and plan (1) Recurrent syncope: likely related to orthostatsic hypotension check orthstatics BID CT head shows mild atrophy, mild white matter chronic microvascular changes cardiac echocardiogram shows EF Which is borderline normal, which abnormalities are difficult to assess, normal diastolic function, RVSP 35-40 Carotid artery ultrasound no significant ICA stenosis no h/o seizure like activity Remains orthostatic despite IV fluid treatments and holding blood pressure medications Hold Coreg, hold losartan PPM interrogation Order TSH, B12, SPEP, UPEP, folic acid Patient does have a resting tremor, could have a component of a neurodegenerative disorder such as parkinsonian -We will need to speak to neurology Status: Acute (2) Vertebral fracture: L3 fracture from mechanical fall norco/lidocaine patch for pain control PT/OT evaluation Status: Acute Qualifiers: Encounter type: initial encounter Fracture of vertebra location: lumbar Lumbar vertebra fracture level: L3 Fracture type: closed Fracture morphology: unspecified fracture morphology Qualified Code(s): S32.039A - Unspecified fracture of third lumbar vertebra, initial encounter for closed fracture (3) A-fib: Status: Acute Qualifiers: Atrial fibrillation type: longstanding persistent Qualified Code(s): I48.11 - Longstanding persistent atrial fibrillation Additional A&P Information dvt ppx: on xarelto full code Attestations Medical Necessity Statement*: Patient requires hospitalization for recurrent syncope, vertebral fracture Coding Level of Care Code Acute Network Security Administrator for [facility] Fwd Diagnoses Recurrent syncope R55 Vertebral fracture S32.039A Encounter type: initial encounter Fracture of vertebra location: lumbar Lumbar vertebra fracture level: L3 Fracture type: closed Fracture morphology: unspecified fracture morphology A-fib I48.11 Atrial fibrillation type: longstanding persistent
[2020-08-05] MEDS: calcitonin nasal 200 unit/spray 3.7 mL Btl 1 SPRAY NOSTRIL-AL (18:30)
[2020-08-05] MEDS: amiodarone 200 mg Tablet PO (19:17)
[2020-08-06] VITALS (13 sets, daily range): BP systolic 71–171; BP diastolic 48–105; PULSE 71–104; RESP 15–24; TEMP 36.7–37.1; O2SAT 92–97
--- NOTE | 2020-08-06 01:33 | PC.NURSE ---
PT WAS RESTING IN BED. PT GOT UP TO BSC 1X. PT GAIT WAS VERY UNSTEADY. PT DENIES PAIN. WILL CONTINUE TO MONITOR.
[2020-08-06 04:28] LABS: Basophils # 0.1 10^3/uL (0.0-0.1); Basophils % 0.6 %; Eosinophils # 0.3 10^3/uL (0.0-0.8); Eosinophils % 2.5 %; Hematocrit 36.9 % (42.0-52.0); Hemoglobin 11.9 g/dL (11.7-16.6); Lymphocytes # 1.1 10^3/uL (0.8-4.8); Lymphocytes % 10.5 %; Mean Corpuscular HGB Conc 32.2 g/dL (30.0-36.0); Mean Corpuscular Hemoglobin 29.5 pg (28.0-34.0); Mean Corpuscular Volume 91.6 fL (80-94); Mean Platelet Volume 9.3 fL (7.4-10.4); Monocytes # 1.3 10^3/uL (0.2-0.9); Monocytes % 12.1 %; Neutrophils # 7.87 10^3/uL (1.8-7.7); Neutrophils % 73.5 %; Nucleated Red Blood Cells % 0 %; Platelet Count 223 10^3/cmm (130-400); Red Blood Count 4.03 10^6/uL (4.1-5.3); Red Cell Distribution Width 12.7 % (12.1-15.1); White Blood Count 10.7 10^3/uL (4.0-10.0)
[2020-08-06 04:32] LABS: INR 2.26 (0.8-1.2)
[2020-08-06 04:42] LABS: Lactate (Lactic Acid level) 0.9 mmol/L (0.5-2.2)
[2020-08-06 04:47] LABS: Alanine Aminotransferase 25 U/L (0-41); Albumin Level 2.5 g/dL (3.5-5.2); Alkaline Phosphatase 72 IU/L (40-130); Anion Gap 9.3 (5-19); Aspartate Amino Transferase 23 U/L (0-40); Blood Urea Nitrogen 17 mg/dL (8-23); Calcium 8.2 mg/dL (8.5-10.5); Carbon Dioxide 25 mmol/L (22-29); Chloride 106 mmol/L (98-107); Creatinine Clr Calc Pharmacy 76.5523; Globulin 2.4 g/dL (1.3-4.6); Glucose 111 mg/dL (65-115); Osmolality Calculated 284 mOsm/kg (285-295); Potassium 4.3 mmol/L (3.5-5.1); Sodium 136 mmol/L (136-145); Total Bilirubin 0.6 mg/dL (0.15-1.2); Total Protein 4.9 g/dL (6.6-8.7)
[2020-08-06 04:49] LABS: C Reactive Protein 96.3 mg/L (0.0-4.9); Magnesium 1.6 mg/dL (1.7-2.3); Phosphorus 2.5 mg/dL (2.5-4.5)
[2020-08-06 04:57] LABS: NT Pro B Type Natriuretic Pept 1086 pg/mL (0-450)
[2020-08-06 05:07] LABS: Creatine Phosphokinase 21 U/L (39-308)
[2020-08-06] MEDS: sodium chloride 0.9% 1,000 ML 75 ML IV (05:34)
--- NOTE | 2020-08-06 05:55 | PC.NURSE ---
PT HAD AND UNEVENTFUL NIGHT. PT IS RESTING IN BED. PT DENIES PAIN AT THIS TIME. PT WAS MOVED TO 111-1 FROM 105. PT TOLERATED MOVE WELL. WILL CONTINUE TO MONITOR.
[2020-08-06] MEDS: acetaminophen 325 mg Tablet 650 MG PO ×2 (09:03→17:22)
--- NOTE | 2020-08-06 09:42 | DCPLANNER ---
IMM completed with pt on 08/06/2020 @ 2305. Copy of rights given to pt.
[2020-08-06] MEDS: lidocaine 5% Patch 1 PATCH TOPICAL (09:55)
[2020-08-06] MEDS: calcitonin nasal 200 unit/spray 3.7 mL Btl 1 SPRAY NOSTRIL-AL (09:56)
[2020-08-06] MEDS: potassium chloride ER 20 mEq Tablet 40 MEQ PO ×2 (09:58→17:20)
[2020-08-06] MEDS: magnesium oxide 400 mg tablet PO ×2 (09:58→18:37)
--- NOTE | 2020-08-06 16:38 | PM.PN ---
Subjective Subjective: Interval history: This morning patient was examined, overall he is doing well, however continues to have orthostatic hypotension episodes Vitals/I&O/Wt Last Vital Signs Temp 98.7 F 08/06/20 15:43 Pulse 93 08/06/20 15:43 Resp 24 H 08/06/20 15:43 BP 167/100 08/06/20 15:45 Pulse Ox 93 08/06/20 15:43 08/06/20 08/06/20 08/06/20 06:59 14:59 22:59 Intake Total 1493.25 / 3313.25 830 / 830 Output Total 400 / 950 200 / 200 Balance 1093.25 / 2363.25 630 / 630 Physical Exam Const: COMMON NORMALS: no acute distress and patient oriented x3 HENMT: COMMON NORMALS: normocephalic HEAD & SCALP: normocephalic Neck/C-Spine: COMMON NORMALS: no JVD Resp: COMMON NORMALS: normal respiratory effort, No retractions, No use of accessory muscles and clear to auscultation bilaterally AUSCULTATION: clear to auscultation bilaterally Cardio: COMMON NORMALS: no JVD, regular rate, regular rhythm, S1 normal heart sound present and S2 normal heart sound present RATE: regular rate RHYTHM: regular rhythm HEART SOUNDS: S1 normal heart sound present and S2 normal heart sound present GI: COMMON NORMALS: Normal to inspection, nondistended, normoactive bowel sounds present, Soft to palpation, non-tender, No hepatosplenomegaly present, no masses and no bruits PALPATION: Yes Soft to palpation and Yes No hepatosplenomegaly present Extremity: COMMON NORMALS: capillary refill normal, no clubbing, cyanosis or edema, no calf tenderness and no pedal edema Neuro: COMMON NORMALS: patient oriented x3 Psych: COMMON NORMALS: mental status grossly normal Data : 08/06/20 03:44 08/06/20 03:44 A&P Assessment and plan (1) Recurrent syncope: likely related to orthostatsic hypotension check orthstatics BID CT head shows mild atrophy, mild white matter chronic microvascular changes cardiac echocardiogram shows EF Which is borderline normal, which abnormalities are difficult to assess, normal diastolic function, RVSP 35-40 Carotid artery ultrasound no significant ICA stenosis no h/o seizure like activity Remains orthostatic despite IV fluid treatments and holding blood pressure medications Hold Coreg, hold losartan Holding amiodarone as its associated with hypotension PPM interrogation Order TSH, B12, folic acid within normal limits SPEP UPEP pending Stop fluids Patient does have a resting tremor, could have a component of a neurodegenerative disorder such as parkinsonian -We will need to speak to neurology at some point or outpatient follow-up Status: Acute (2) Vertebral fracture: L3 fracture from mechanical fall On intranasal calcitonin norco/lidocaine patch for pain control PT/OT evaluation Status: Acute Qualifiers: Encounter type: initial encounter Fracture of vertebra location: lumbar Lumbar vertebra fracture level: L3 Fracture type: closed Fracture morphology: unspecified fracture morphology Qualified Code(s): S32.039A - Unspecified fracture of third lumbar vertebra, initial encounter for closed fracture (3) A-fib: Status: Acute Qualifiers: Atrial fibrillation type: longstanding persistent Qualified Code(s): I48.11 - Longstanding persistent atrial fibrillation Additional A&P Information dvt ppx: on xarelto full code Attestations Medical Necessity Statement*: Patient requires hospitalization, inpatient, for orthostatic hypotension, vertebral fracture Coding Level of Care Code Acute Husker Operator for [facility] Fwd Diagnoses Recurrent syncope R55 Vertebral fracture S32.039A Encounter type: initial encounter Fracture of vertebra location: lumbar Lumbar vertebra fracture level: L3 Fracture type: closed Fracture morphology: unspecified fracture morphology A-fib I48.11 Atrial fibrillation type: longstanding persistent
[2020-08-06] MEDS: atorvastatin 40 mg Tablet PO (17:20)
[2020-08-06] MEDS: rivaroxaban 10 mg Tablet 20 MG PO (17:21)
--- NOTE | 2020-08-06 20:30 | PC.NURSE ---
PT AMBULATED TO BATHROOM. PT DID POOR GOING TO THE BATHROOM. PT KEPT TRYING TO LEAN BACK. PT DID EXCELLENT COMING BACK FROM THE BATHROOM AND ONLY NEEDED MINOR HELP. PT DENIES PAIN. WILL CONTINUE TO MONITOR.
[2020-08-07] VITALS (10 sets, daily range): BP systolic 66–167; BP diastolic 41–100; PULSE 73–122; RESP 18–26; TEMP 36.9–37.3; O2SAT 88–95
--- NOTE | 2020-08-07 04:50 | PC.NURSE ---
PT HAD AN UNEVENTFUL NIGHT. PT GOT UP SEVERAL TIMES TO USE THE BATHROOM. PT DENIES PAIN. WILL CONTINUE TO MONITOR.
[2020-08-07 05:05] LABS: Lactate (Lactic Acid level) 0.9 mmol/L (0.5-2.2)
[2020-08-07 05:10] LABS: NT Pro B Type Natriuretic Pept 1102 pg/mL (0-450); Procalcitonin 0.11 ng/mL (0-0.5)
[2020-08-07 05:24] LABS: C Reactive Protein 117.4 mg/L (0.0-4.9); Creatine Phosphokinase 21 U/L (39-308); Magnesium 1.6 mg/dL (1.7-2.3); Phosphorus 2.7 mg/dL (2.5-4.5)
[2020-08-07 05:30] LABS: INR 2.65 (0.8-1.2)
[2020-08-07 07:08] LABS: PROTEIN, TOTAL 4.4 g/dL (6.1-8.1)
[2020-08-07 08:39] LABS: Basophils # 0.1 10^3/uL (0.0-0.1); Basophils % 0.5 %; Eosinophils # 0.3 10^3/uL (0.0-0.8); Eosinophils % 2.2 %; Hematocrit 37.1 % (42.0-52.0); Hemoglobin 12.1 g/dL (11.7-16.6); Lymphocytes # 1.3 10^3/uL (0.8-4.8); Lymphocytes % 10.5 %; Mean Corpuscular HGB Conc 32.6 g/dL (30.0-36.0); Mean Corpuscular Hemoglobin 29.4 pg (28.0-34.0); Mean Corpuscular Volume 90.3 fL (80-94); Mean Platelet Volume 9.7 fL (7.4-10.4); Monocytes # 1.5 10^3/uL (0.2-0.9); Monocytes % 12.3 %; Neutrophils # 8.81 10^3/uL (1.8-7.7); Neutrophils % 73.7 %; Nucleated Red Blood Cells % 0 %; Platelet Count 243 10^3/cmm (130-400); Red Blood Count 4.11 10^6/uL (4.1-5.3); Red Cell Distribution Width 12.9 % (12.1-15.1)
[2020-08-07 08:57] LABS: Alanine Aminotransferase 23 U/L (0-41); Albumin Level 2.5 g/dL (3.5-5.2); Alkaline Phosphatase 75 IU/L (40-130); Anion Gap 13.4 (5-19); Aspartate Amino Transferase 27 U/L (0-40); Blood Urea Nitrogen 16 mg/dL (8-23); Calcium 8.9 mg/dL (8.5-10.5); Carbon Dioxide 23 mmol/L (22-29); Chloride 105 mmol/L (98-107); Creatinine Clr Calc Pharmacy 76.5523; Globulin 2.5 g/dL (1.3-4.6); Glucose 91 mg/dL (65-115); Osmolality Calculated 285 mOsm/kg (285-295); Potassium 4.4 mmol/L (3.5-5.1); Sodium 137 mmol/L (136-145); Total Bilirubin 0.8 mg/dL (0.15-1.2)
[2020-08-07] MEDS: lidocaine 5% Patch 1 PATCH TOPICAL (08:59)
[2020-08-07] MEDS: potassium chloride ER 20 mEq Tablet 40 MEQ PO (08:59)
[2020-08-07] MEDS: magnesium oxide 400 mg tablet PO (08:59)
[2020-08-07] MEDS: dilTIAZem 30 mg Tablet PO (08:59)
[2020-08-07] MEDS: calcitonin nasal 200 unit/spray 3.7 mL Btl 1 SPRAY NOSTRIL-AL (09:00)
[2020-08-07] MEDS: midodrine 5 mg TABLET 2.5 MG PO (10:03)
--- NOTE | 2020-08-07 11:50 | PM.DCS ---
Discharge Providers Date of Admission: 08/03/20 15:20 Date of Discharge: August 07, 2020 Attending Provider at Admission: Lynette Mcgraw MD Attending Provider at Discharge: Jose Patricia MD Diagnoses at Discharge Discharge Diagnosis (1) Recurrent syncope: Status: Acute (2) Vertebral fracture: Status: Acute Qualifiers: Encounter type: initial encounter Fracture of vertebra location: lumbar Lumbar vertebra fracture level: L3 Fracture type: closed Fracture morphology: unspecified fracture morphology Qualified Code(s): S32.039A - Unspecified fracture of third lumbar vertebra, initial encounter for closed fracture (3) A-fib: Status: Acute Qualifiers: Atrial fibrillation type: longstanding persistent Qualified Code(s): I48.11 - Longstanding persistent atrial fibrillation Reason for Visit Reason for Visit: Lt Hip pain Hospital Course Hospital Course This is a 80-year-old male with a past medical history of atrial fibrillation on Xarelto, hypertension, hyperlipidemia, who presents to [facility] due to syncopal episodes Patient was admitted to [facility] for recurrent syncopal episodes, admitted to cardiac stepdown unit Recurrent syncope: likely related to orthostatsic hypotension Orthostats were positive throughout patient's admission CT head shows mild atrophy, mild white matter chronic microvascular changes cardiac echocardiogram shows EF Which is borderline normal, which abnormalities are difficult to assess, normal diastolic function, RVSP 35-40 Carotid artery ultrasound no significant ICA stenosis no h/o seizure like activity Remains orthostatic despite IV fluid treatments and holding blood pressure medications Hold Coreg, hold losartan Holding amiodarone as its associated with hypotension TSH, B12, folic acid within normal limits SPEP UPEP pending Telemetry monitoring, EKGs, troponins within normal limits Patient continues to be orthostatic positive despite all interventions as above But as inpatient he remains relatively asymptomatic, even with orthostatic episodes, he is asymptomatic, no recurrent syncopal episodes Patient does have a resting tremor, does have flat facies, does have rigidity could have a component of a neurodegenerative disorder such as parkinsonian resulting in autonomic dysfunction Thus I have discharged him on midodrine to be used if you were to feel lightheaded or dizzy or if systolic blood pressures less than 90 or in or diastolic less than 60 All his blood pressure medications have been held He is to follow-up cardiology in 2 weeks I have ordered a event monitor, Dr. Boothe will follow I will also have patient follow-up with Dr. Ledesma for parkinsonian disease concerns and autonomic dysfunction. I have elected not to start him on any treatment for Parkinson's disease, as it is associated with increased orthostatic hypotension Patient was advised to ambulate with care, gait and transfer with care, monitor for lightheadedness dizziness, monitor for syncope, his is very involved with his care Advised that he has a high risk of falls and fractures and intracranial bleed given that he is on the Xarelto However he has done well as inpatient, and he has a lot of support at home, we will continue to monitor, agreed to continue Xarelto after discussion of risks and benefits, voiced understanding, all questions answered, agreed to proceed Patient also developed a vertebral compression fracture secondary to mechanical fall, L3, discharged on nasal calcitonin, lidocaine patches, [place] Physical Exam Const: COMMON NORMALS: no acute distress and patient oriented x3 HENMT: COMMON NORMALS: normocephalic HEAD & SCALP: normocephalic Neck/C-Spine: COMMON NORMALS: no JVD Resp: COMMON NORMALS: normal respiratory effort, No retractions, No use of accessory muscles and clear to auscultation bilaterally AUSCULTATION: clear to auscultation bilaterally Cardio: COMMON NORMALS: no JVD, regular rate, regular rhythm, S1 normal heart sound present and S2 normal heart sound present RATE: regular rate RHYTHM: regular rhythm HEART SOUNDS: S1 normal heart sound present and S2 normal heart sound present GI: COMMON NORMALS: Normal to inspection, nondistended, normoactive bowel sounds present, Soft to palpation, non-tender, No hepatosplenomegaly present, no masses and no bruits PALPATION: Yes Soft to palpation and Yes No hepatosplenomegaly present Extremity: COMMON NORMALS: capillary refill normal, no clubbing, cyanosis or edema, no calf tenderness and no pedal edema Neuro: COMMON NORMALS: patient oriented x3 Psych: COMMON NORMALS: mental status grossly normal Discharge Data Data Completed and Pending: Completed Studies During Hospitalization Category Date Time Status CT head wo con* [id number] Routine Cat Scan 08/03/20 18:37 Completed XR chest 1V shireen ble [id number] Stat Exams 08/03/20 12:09 Completed XR hip LT 2-3V wo /w pel* [id number] Stat Exams 12/23/20 12:08 Completed XR lumbar spine 2 -3V* [id number] Stat Exams 08/03/20 12:08 Completed CV carotid duplex BI* [id number] Routine Ultrasound 08/04/20 18:37 Completed CV echo complete* [id number] Routine Ultrasound 08/04/20 18:37 Completed Pending at discharge Category Date Time Status Complete Blood Co unt w/Auto AM LABS Lab 08/08/20 04:00 Ordered Complete Blood Co unt w/Auto AM LABS Lab 08/09/20 04:00 Ordered Comprehensive Met abolic Panel AM LA BS Lab 08/08/20 04:00 Ordered Comprehensive Met abolic Panel AM LA BS Lab 08/09/20 04:00 Ordered Total Protein Janeen ctrophoresis Stat Lab 08/05/20 05:18 Results Urine Protein Janeen ctrop Random Stat Lab 08/05/20 14:00 Received Labs from last 24 hours 08/07/20 08/07/20 08/07/20 03:21 03:21 03:21 WBC 12.0 H RBC 4.11 Hgb 12.1 Hct 37.1 L MCV 90.3 MCH 29.4 MCHC 32.6 RDW 12.9 Plt Count 243 MPV 9.7 Neut % (Auto) 73.7 Lymph % (Auto) 10.5 [place] % (Auto) 12.3 Eos % (Auto) 2.2 Baso % (Auto) 0.5 Neut # (Auto) 8.81 H Lymph # (Auto) 1.3 [place] # (Auto) 1.5 H Eos # (Auto) 0.3 Baso # (Auto) 0.1 Nucleated RBC % (a uto) 0 Nucleated RBCs # 0.0 PT INR Sodium 137 Potassium 4.4 Chloride 105 Carbon Dioxide 23 Anion Gap 13.4 BUN 16 Creatinine 0.8 GFR Calculation Not Reportable Glucose 91 Calculated Osmolal ity 285 Lactate Calcium 8.9 Phosphorus 2.7 Magnesium 1.6 L Total Bilirubin 0.8 AST 27 ALT 23 Alkaline Phosphata se 75 Creatine Kinase 21 L C-Reactive Protein 117.4 H NT-Pro-B Natriuret Pep 1102 H Total Protein 5.0 L Albumin 2.5 L Globulin 2.5 Procalcitonin 0.11 08/07/20 08/07/20 08/05/20 03:21 03:21 05:18 WBC RBC Hgb Hct MCV MCH MCHC RDW Plt Count MPV Neut % (Auto) Lymph % (Auto) [place] % (Auto) Eos % (Auto) Baso % (Auto) Neut # (Auto) Lymph # (Auto) [place] # (Auto) Eos # (Auto) Baso # (Auto) Nucleated RBC % (a uto) Nucleated RBCs # PT 29.30 H INR 2.65 H Sodium Potassium Chloride Carbon Dioxide Anion Gap BUN Creatinine GFR Calculation Glucose Calculated Osmolal ity Lactate 0.9 Calcium Phosphorus Magnesium Total Bilirubin AST ALT Alkaline Phosphata se Creatine Kinase C-Reactive Protein NT-Pro-B Natriuret Pep Total Protein 4.4 L Albumin Globulin Procalcitonin Vitals: Last Vital Signs Temp 98.4 F 08/07/20 08:00 Pulse 103 H 08/07/20 09:42 Resp 18 08/07/20 08:00 BP 128/94 08/07/20 08:00 Pulse Ox 95 08/07/20 09:42 Discharge Plan Discharge Patient Disposition: Home Condition: Stable Prescriptions: New hydrocodone-acetaminophen 5-325 mg Tablet 1 tab PO Q6H PRN (Reason: Moderate To Severe Pain) 7 Days Qty: 28 RF: 0 lidocaine [Lidoderm] 5 % Adhesive Patch,Medicated 1 patch topical [id number] 15 Days Qty: 15 RF: 0 diltiazem HCl 30 mg Tablet 30 mg PO Q6H 30 Days Qty: 120 RF: 0 calcitonin (salmon) 200 unit/actuation [place],Non-Aerosol 1 spray nostril-al DAILY 30 Days Qty: 3.7 RF: 0 midodrine 5 mg Tablet 2.5 mg PO DAILY PRN (Reason: FOR SBP>90 OR DBP<60) 30 Days Qty: 15 RF: 0 Continued atorvastatin 40 mg tablet 40 mg PO DAILY@18 RF: 0 magnesium 250 mg Tablet 400 mg PO BID@ RF: 0 Vitamin D3 25 mcg (1,000 unit) Capsule 25 mcg PO DAILY@18 RF: 0 Calcium-Vitamin D 600 mg calcium- 400 unit Tablet 1 tab PO BID@ RF: 0 Xarelto 20 mg tablet 20 mg PO DAILY@18 RF: 0 Discontinued losartan 50 mg tablet 25 mg PO BID@ RF: 0 carvedilol 6.25 mg tablet 6.25 mg PO BID@ RF: 0 amiodarone 200 mg tablet See Rx Instructions .ROUTE .COMPLEX RF: 0 potassium chloride 20 mEq tablet,ER particles/crystals 40 meq PO BID@,18 RF: 0 Discharge Orders: Discharge Order (Routine); Ordered 08/07/20 Ordered By: Jose Patricia Other Ambulatory Orders: [place] cardiac event monitor (Routine) Timeframe: 1 Day Facility: [facility] - Location: Cardiac Diagnostic Laboratory Ordered By: Jose Patricia Referrals: [facility] [place] Home Care ([facility]) [Outside] Sada Ledesma MD [Physician] - 2 weeks (reccurent syncope, parkinson features) Aric Montana M.D [Physician] - 2 weeks Discharge Diet: Cardiac Discharge Activity: Resume usual activity Patient Instructions: Syncope (DC), Hypotension (DC), Hypotension (GEN), Fall Prevention (DC), Fall Prevention Activity Restrictions/Additional Instructions: -I have discontinued Coreg, amiodarone, losartan due to persistent orthostatic hypotension, syncope -I have started you on Cardizem for heart rhythm control with atrial fibrillation -Follow-up with cardiology -I have ordered a event monitor for your syncope -I have provided midodrine if your blood pressure is less than 90/60 to be used as needed, and if you would feel lightheaded or dizzy -Please follow-up with neurology in 2 weeks -if you have recurrent syncopal episodes please come back to the emergency room Discharge Attestations Time Spent in Discharge Care*: less than 30 min Quality Metrics Clinical Quality Measures During this hospital stay, did patient experience: None Coding Level of Care Code Acute 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
[2020-08-08 11:58] LABS: ALBUMIN 2.2 g/dL (3.8-4.8); ALPHA 1 GLOBULIN 0.4 g/dL (0.2-0.3); ALPHA 2 GLOBULIN 0.8 g/dL (0.5-0.9); BETA 1 GLOBULIN 0.3 g/dL (0.4-0.6); BETA 2 GLOBULIN 0.2 g/dL (0.2-0.5); GAMMA GLOBULIN 0.6 g/dL (0.8-1.7)
[2020-08-08 13:38] LABS: Creatinine, Random Urine 100 mg/dL (20-320); Protein, Total, Random 20 mg/dL (5-25); Protein/Creatinine Ratio 200 mg/g creat (22-128)
[2020-08-09 08:38] LABS: Albumin,Urine Random 100 %; Alpha-1-Globulins Urine Random 0 %; Alpha-2-Globulins Urine Random 0 %; Beta-Globulin,Urine Random 0 %; Gamma Globulin,Urine Random 0 %
== END 2020-08-07 15:14 | disposition home or self-care (01) | DRG 312 ==
LOC: ER 14:17 → CSU 15:22
PROVIDERS: Admitting Provider Student in an Organized Health Care Education/Training Program; Emergency Provider Family Medicine; Visit Provider Family Medicine
DX: I95.1 Orthostatic hypotension (principal); S32.039A Unspecified fracture of third lumbar vertebra, initial encounter for closed fracture; I48.11 Longstanding persistent atrial fibrillation; M25.552 Pain in left hip; Z86.19 Personal history of other infectious and parasitic diseases; Z87.01 Personal history of pneumonia (recurrent); Z95.0 Presence of cardiac pacemaker; W19.XXXA Unspecified fall, initial encounter; I10 Essential (primary) hypertension; E78.5 Hyperlipidemia, unspecified; R25.1 Tremor, unspecified; Z79.01 Long term (current) use of anticoagulants
CPT/HCPCS: 12345; 36415; 70450; 71045; 72100; 73502; 80053; 81001; 82550; 82607; 82746; 83036; 83605; 83735; 83880; 84100; 84145; 84155; 84165; 84443; 84484; 85025; 85610; 85651; 86140; 93005; 93306; 93880; 97110; 97116; 97162; 97165; 97530; 97535; 99283; J7030; J7040

== ENCOUNTER 2021-03-21 07:50 | Outpatient (CLI) | payer MEDICARE, OTHER, SELFPAY ==
--- NOTE | 2021-03-21 08:03 | XR_ITS ---
WS: [id number] HIP WITH PELVIS RIGHT TECHNIQUE: 3 views of the right hip with pelvis CLINICAL INFORMATION: GROIN PAIN COMPARISON: August 03, 2020 FINDINGS: Osteopenia. Moderate osteoarthritis right hip with joint space narrowing. No acute fractures. Normal visualized right pubic rami. Mild to moderate degenerative arthritis left hip. Normal left pubic rami. Normal visualized sacroilia c joints and sacrum. XR/XR hip RT 2-3V wo/w pel* [id number] IMPRESSION: 1. Mild to moderate degenerative arthritis both hips. No acute fractures. 2. Osteopenia. 3. Normal pubic rami. 4. No acute pelvic findings. Tonnis classification: grade 2: small cysts in femoral head/acetabulum or moder ate joint space narrowing or moderate loss of head sphericity
== END 2021-03-21 07:51 | disposition home or self-care (01) ==
PROVIDERS: Visit Provider Family Medicine
DX: R10.30 Lower abdominal pain, unspecified (principal); M16.11 Unilateral primary osteoarthritis, right hip; M85.88 Other specified disorders of bone density and structure, other site
CPT/HCPCS: 73502

== ENCOUNTER → 2021-04-06 10:24 | Outpatient (BNVA) | payer MEDICARE, OTHER, SELFPAY | PROVIDERS: Referring Provider Family Medicine; Visit Provider Specialist | DX: M16.11 Unilateral primary osteoarthritis, right hip (principal); M25.551 Pain in right hip | CPT/HCPCS: 73502 ==

== ENCOUNTER → 2021-04-10 12:11 | Outpatient (BNVA) | payer MEDICARE, OTHER, SELFPAY | PROVIDERS: Visit Provider Surgery | DX: Z01.812 Encounter for preprocedural laboratory examination (principal); Z20.822 Contact with and (suspected) exposure to COVID-19 | CPT/HCPCS: 87635 ==

== ENCOUNTER 2021-08-29 09:35 | Outpatient (CLI) | payer MEDICARE, OTHER, SELFPAY ==
--- NOTE | 2021-08-29 09:44 | XR_ITS ---
WS: [id number] Exam: XR chest 2V* [id number] Date/Time of Exam: 08/29/2021 9:44 AM Reason For Exam: NONRHEUMATIC MITRAL VALVE DISORDERS/AFIB Comparison 08/03/2020. The lungs are hyperinflated. No acute infiltrates are seen. Chronic changes in the right upper lobe. Heart size is normal. The mediastinum is not widened. Mild thoracic scoliosis with right convexity. A permanent cardiac pacer superimposes the left chest. At least one old lower right rib fracture noted . XR/XR chest 2V* [id number] IMPRESSION: 1. Pulmonary hyperinflation. No acute cardiopulmonary finding.
[2021-08-29 10:27] LABS: Basophils # 0.1 10^3/uL (0.0-0.1); Basophils % 0.9 %; Eosinophils # 0.6 10^3/uL (0.0-0.8); Eosinophils % 8.9 %; Hematocrit 38.1 % (42.0-52.0); Hemoglobin 12.1 g/dL (11.7-16.6); Lymphocytes # 1.3 10^3/uL (0.8-4.8); Lymphocytes % 18.9 %; Mean Corpuscular HGB Conc 31.8 g/dL (30.0-36.0); Mean Corpuscular Hemoglobin 29.4 pg (28.0-34.0); Mean Corpuscular Volume 92.7 fl (80-94); Mean Platelet Volume 8.9 fL (7.4-10.4); Monocytes # 0.6 10^3/uL (0.2-0.9); Monocytes % 8.4 %; Neutrophils # 4.41 10^3/uL (1.8-7.7); Neutrophils % 62.6 %; Nucleated Red Blood Cells % 0 %; Platelet Count 188 10^3/cmm (130-400); Red Blood Count 4.11 10^6/uL (4.1-5.3); Red Cell Distribution Width 13.1 % (12.1-15.1)
[2021-08-29 11:00] LABS: Alanine Aminotransferase 12 U/L (0-41); Albumin Level 3.7 g/dL (3.5-5.2); Alkaline Phosphatase 61 IU/L (40-130); Anion Gap 11.9 (5-19); Aspartate Amino Transferase 17 U/L (0-40); Blood Urea Nitrogen 21 mg/dL (8-23); Calcium 8.3 mg/dL (8.5-10.5); Carbon Dioxide 26 mmol/L (22-29); Chloride 105 mmol/L (98-107); Free T4 Free Thyroxine 0.99 ng/dL (0.82-1.77); Globulin 1.8 g/dL (1.3-4.6); Glucose 88 mg/dL (65-115); Osmolality Calculated 290 mOsm/kg (285-295); Potassium 3.9 mmol/L (3.5-5.1); Sodium 139 mmol/L (136-145); Thyroid Stimulating Hormone 1.15 uIU/mL (0.27-4.20); Total Bilirubin 0.4 mg/dL (0.15-1.2); Total Protein 5.5 g/dL (6.6-8.7)
== END 2021-08-29 09:36 | disposition home or self-care (01) ==
LOC: RAD 09:40
PROVIDERS: PCP Family Medicine; Visit Provider Internal Medicine Interventional Cardiology
DX: I48.91 Unspecified atrial fibrillation (principal); I34.8 Other nonrheumatic mitral valve disorders; Z01.89 Encounter for other specified special examinations
CPT/HCPCS: 36415; 71046; 80053; 84439; 84443; 85025

== ENCOUNTER 2023-06-01 11:16 | Emergency (ER) | payer MEDICARE, OTHER, SELFPAY ==
[2023-06-01 11:28] VITALS: BP 96/62; PULSE 60; RESP 16; TEMP 36.8; O2SAT 97; BMI 24.4
--- NOTE | 2023-06-01 11:41 | ECG_ITS ---
[facility] Test Date: 2023-06-01 Pat Name: Josh Padron Department: Room: Gender: Male [employer] Teacher: : 1940 Requested By: Chai Chapa Order Number: [id number] Shawna MD: Amanda Carter M.D. Measurements Intervals [place] Rate: 63 P: 119 GA: 211 QRS: -10 QRSD: 98 T: 9 QT: 509 QTc: 521 Interpretive Statements ELECTRONIC ATRIAL PACEMAKER INCOMPLETE RIGHT BUNDLE BRANCH BLOCK [90+ ms QRS DURATION, TERMINAL R IN V1/V2, 40+ ms S IN I/aVL/V4/V5/V6] PROLONGED QT INTERVAL Compared to ECG 08/03/2020 18:06:44 Incomplete right bundle-branch block now present Prolonged QT interval now present Sinus rhythm no longer present Left-axis deviation no longer present Electronically Signed On 06-02-2023 10:57:36 CDT by Amanda Carter M.D. [email or web address]
[2023-06-01 12:08] LABS: Basophils % 0.5 %; Eosinophils # 0.1 10^3/uL (0.0-0.8); Eosinophils % 1.6 %; Hematocrit 34.3 % (37-53); Lymphocytes # 1.1 10^3/uL (0.8-4.8); Mean Corpuscular HGB Conc 32.1 g/dL (30-55); Mean Corpuscular Hemoglobin 27.8 pg (27-33); Mean Corpuscular Volume 86.6 fl (82-101); Mean Platelet Volume 9.3 fL (7.4-10.4); Monocytes # 0.6 10^3/uL (0.2-0.9); Monocytes % 8.2 %; Neutrophils % 74.2 %; Nucleated Red Blood Cells % 0 %; Platelet Count 179 10^3/cmm (157-399); Red Blood Count 3.96 10^6/uL (3.85-5.65); White Blood Count 7.55 10^3/uL (3.29-11.43)
--- NOTE | 2023-06-01 12:32 | W.ED.RECABL ---
HPI - Recheck/Abnormal Lab/Rx General: Chief Complaint: Recheck/Abnormal Lab/Rx Stated Complaint: sent for abn labs Time Seen by Provider: 06/01/23 12:32 History of Present Illness: Patient presents to the ER with complaints of low potassium. Patient saw Dr. Thorpe cardiology in [place] yesterday and they received a call earlier this morning stating his potassium was 2.5. Dr. Thorpe did call in potassium 20 mEq p.o. twice daily but patient has not picked it up and will not be able to pick it up until Saturday. Patient did take several laxatives during last week and had 1 day of diarrhea. Patient has never had low potassium in his past that he knows of. Patient does not currently take magnesium 400 mg p.o. twice daily. Patient has no complaints otherwise at this time. Review of Systems General: Reports: 10 or more systems reviewed and unremarkable except in HPI and below PFSH ED PFSH: Medical History A-fib Chronic anticoagulation COVID-19 Hyperlipidemia Hypertension Pacemaker Vertebral fracture Surgical History History of hernia surgery Hx of fracture of right hip with surgery 2022 Family History Other Hypertension Denies family history of Colon cancer Diabetes mellitus, type 2 CAD (coronary artery disease) Social History Smoking and tobacco/nicotine status: never used tobacco/nicotine Alcohol intake: never Substance/Drug Use: never Household members: spouse Marital status: Current occupational status: retired 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 Physical Exam Const: COMMON NORMALS: no acute distress, average body habitus, patient oriented x3, no limitations, healthy appearing, alert and well nourished HENMT: COMMON NORMALS: normocephalic, atraumatic, hearing grossly normal bilaterally, external ears normal, Normal external nose present, moist oral mucous membranes and oropharynx normal HEAD & SCALP: normocephalic and atraumatic NOSE: Normal external nose present EXTERNAL EAR: Yes external ears normal Neck/C-Spine: COMMON NORMALS: full ROM, no lymphadenopathy, supple, no meningeal signs, no JVD and Thyroid normal THYROID: Thyroid normal Chest: COMMONS NORMALS: normal inspection of the chest and normal palpation of entire chest wall Resp: COMMON NORMALS: normal respiratory effort, No retractions, No use of accessory muscles and clear to auscultation bilaterally AUSCULTATION: clear to auscultation bilaterally Cardio: COMMON NORMALS: no JVD, regular rate, regular rhythm, S1 normal heart sound present, S2 normal heart sound present, No gallops present (Cardio), No clicks present (Cardio), No murmurs present (Cardio) and No rub (Cardio) RATE: regular rate RHYTHM: regular rhythm HEART SOUNDS: S1 normal heart sound present and S2 normal heart sound present Neuro: COMMON NORMALS: patient oriented x3 SENSORIUM/ORIENTATION: Yes alert MENINGEAL SIGNS: Yes no meningeal signs Course Vital Signs: Vital signs: Vital Signs Temperature 98.2 F 06/01/23 11:28 Pulse Rate 62 06/01/23 15:23 Respiratory Rate 26 H 06/01/23 15:23 Blood Pressure 135/74 06/01/23 15:23 Pulse Oximetry 96 06/01/23 15:23 Oxygen Delivery Me thod Room Air 06/01/23 13:25 MDM - Recheck/Abnormal Lab/Rx Medical Decision Making Patient presents to the ER with complaints of low potassium since yesterday's blood draw from his the enterprise application administrator in [place]. Patient potassium was 2.5. Patient was given 20 mEq IV and 40 mEq orally initially and then her dosed again 40 mEq orally. Patient will be discharged home to continue the dose at the enterprise application administrator prescribed at 20 mEq p.o. twice daily and should have his potassium rechecked within 7 days. Differential Diagnosis Unlikely encounter for medication refill, encounter for wound recheck, encounter for recheck of burn, encounter for removal of sutures or warfarin-induced coagulopathy Medical Records I reviewed the patient's medical records. Lab Data I reviewed the patient's lab results. 06/01/23 12:00 06/01/23 12:00 Laboratory Results WBC 7.55 10^3/uL (3.29-11.43) 06/01/23 12:00 RBC 3.96 10^6/uL (3.85-5.65) 06/01/23 12:00 Hgb 11.00 g/dL (11.27-16.99) L 06/01/23 12:00 Hct 34.3 % (37-53) L 06/01/23 12:00 MCV 86.6 fl (82-101) 06/01/23 12:00 MCH 27.8 pg (27-33) 06/01/23 12:00 MCHC 32.1 g/dL (30-55) 06/01/23 12:00 RDW 13.0 % (12.1-15.1) 06/01/23 12:00 Plt Count 179 10^3/cmm (157-399) 06/01/23 12:00 MPV 9.3 fL (7.4-10.4) 06/01/23 12:00 Neut % (Auto) 74.2 % 06/01/23 12:00 Lymph % (Auto) 15.0 % 06/01/23 12:00 [place] % (Auto) 8.2 % 06/01/23 12:00 Eos % (Auto) 1.6 % 06/01/23 12:00 Baso % (Auto) 0.5 % 06/01/23 12:00 Neut # (Auto) 5.60 10^3/uL (1.8-7.7) 06/01/23 12:00 Lymph # (Auto) 1.1 10^3/uL (0.8-4.8) 06/01/23 12:00 [place] # (Auto) 0.6 10^3/uL (0.2-0.9) 06/01/23 12:00 Eos # (Auto) 0.1 10^3/uL (0.0-0.8) 06/01/23 12:00 Baso # (Auto) 0.0 10^3/uL (0.0-0.1) 06/01/23 12:00 Nucleated RBC % (auto) 0 % 06/01/23 12:00 Nucleated RBCs # 0.0 /100WBC 06/01/23 12:00 Sodium 137 mmol/L (136-145) 06/01/23 12:00 Potassium 2.3 mmol/L (3.5-5.1) L* 06/01/23 12:00 Chloride 96 mmol/L (98-107) L 06/01/23 12:00 Carbon Dioxide 32 mmol/L (22-29) H 06/01/23 12:00 Anion Gap 11.3 (5-19) 06/01/23 12:00 BUN 23 mg/dL (8-23) 06/01/23 12:00 Creatinine 1.5 mg/dL (0.7-1.2) H 06/01/23 12:00 GFR Calculation Not Reportable 06/01/23 12:00 Glucose 162 mg/dL (65-115) H 06/01/23 12:00 Calculated Osmolality 291 mOsm/kg (285-295) 06/01/23 12:00 Calcium 8.7 mg/dL (8.5-10.5) 06/01/23 12:00 Magnesium 1.9 mg/dL (1.7-2.3) 06/01/23 12:00 Total Bilirubin 0.6 mg/dL (0.15-1.2) 06/01/23 12:00 AST 17 U/L (0-40) 06/01/23 12:00 ALT 9 U/L (0-41) 06/01/23 12:00 Alkaline Phosphatase 88 U/L (40-130) 06/01/23 12:00 Total Protein 5.7 g/dL (6.6-8.7) L 06/01/23 12:00 Albumin 3.3 g/dL (3.5-5.2) L 06/01/23 12:00 Globulin 2.4 g/dL (1.3-4.6) 06/01/23 12:00 No radiology studies performed this visit EKG Data EKG 1: I personally reviewed and interpreted this EKG as follows: EKG interpretation date: 06/01/23 EKG interpretation time: 11:41 Prior EKG tracings: not available for review Interpretation: EKG shows ventricular rate 63 bpm, IN interval 211, QRS duration 98, QTc of 516, electronic atrial pacemaker, incomplete right bundle branch block, prolonged QT interval Discharge Plan Discharge Patient Disposition: Home Clinical Impression: Acute hypokalemia Condition: Stable Prescriptions: No Action amiodarone 100 mg tablet 100 mg PO DAILY carvedilol 12.5 mg tablet 12.5 mg PO BID Rx Instructions: must administer with a meal/food psyllium husk 3 gram/5.4 gram powder 1 tbsp PO DAILY Rx Instructions: mix into at least 8 oz of water or juice before administering multivitamin Tablet 1 tab PO DAILY fludrocortisone 0.1 mg tablet 0.1 mg PO BID docusate sodium 100 mg capsule 100 mg PO BID sennosides-docusate sodium [Stool Softener-Stimulant Laxat] 8.6-50 mg tablet 2 tab-cap PO BID atorvastatin 40 mg tablet See Rx Instructions .ROUTE .COMPLEX Qty: 90 3RF Dose Instruction: TAKE 1 TABLET BY MOUTH DAILY AT BEDTIME FOR LIPIDS Rx Instructions: TAKE 1 TABLET BY MOUTH DAILY AT BEDTIME FOR LIPIDS magnesium 250 mg Tablet 400 mg PO BID@09,18 Vitamin D3 25 mcg (1,000 unit) Capsule 25 mcg PO DAILY@18 calcium carbonate-vit D3-min 600 mg calcium- 400 unit Tablet 1 tab PO BID@09 Xarelto 20 mg tablet 20 mg PO DAILY@18 Discharge Orders: Discharge ED (Routine); Ordered 06/01/23 Ordered By: Chai Chapa Referrals: Miquel Chen, GENERAL INTERNIST AND PHYSICIAN LEADER [Primary Care Provider] - 1 week Patient Instructions: Hypokalemia (ED) Activity Restrictions/Additional Instructions: Please continue the potassium at the enterprise application administrator prescribed a 20 mEq by mouth twice daily. Please follow-up with your family practice physician for blood work in 1 week such as rechecking your potassium. Coding Level of Care Code ED Patient Resource Coordinator for Hugo Florence
[2023-06-01 12:37] LABS: Alanine Aminotransferase 9 U/L (0-41); Albumin Level 3.3 g/dL (3.5-5.2); Alkaline Phosphatase 88 U/L (40-130); Anion Gap 11.3 (5-19); Aspartate Amino Transferase 17 U/L (0-40); Blood Urea Nitrogen 23 mg/dL (8-23); Calcium 8.7 mg/dL (8.5-10.5); Carbon Dioxide 32 mmol/L (22-29); Chloride 96 mmol/L (98-107); Globulin 2.4 g/dL (1.3-4.6); Glucose 162 mg/dL (65-115); Osmolality Calculated 291 mOsm/kg (285-295); Sodium 137 mmol/L (136-145); Total Bilirubin 0.6 mg/dL (0.15-1.2); Total Protein 5.7 g/dL (6.6-8.7)
[2023-06-01 12:38] LABS: Potassium 2.3 mmol/L (3.5-5.1)
[2023-06-01 12:51] LABS: Magnesium 1.9 mg/dL (1.7-2.3)
[2023-06-01] MEDS: potassium chloride ER 20 mEq Tablet 40 MEQ PO (13:19)
[2023-06-01] MEDS: lidocaine 1% 5 ML in potassium chloride premix 100 ML 52.5 ML IV (13:20)
[2023-06-01 13:25] VITALS: BP 117/65; PULSE 60; RESP 18; O2SAT 96
[2023-06-01 14:51] VITALS: BP 141/63; PULSE 60; RESP 18; O2SAT 96
[2023-06-01 15:23] VITALS: BP 135/74; PULSE 62; RESP 26; O2SAT 96
== END 2023-06-01 15:37 | disposition home or self-care (01) ==
PROVIDERS: Emergency Provider Emergency Medicine; PCP Clinical Nurse Specialist Adult Health
DX: E87.6 Hypokalemia (principal); E78.5 Hyperlipidemia, unspecified; I10 Essential (primary) hypertension; Z95.0 Presence of cardiac pacemaker
CPT/HCPCS: 36415; 80053; 83735; 85025; 93005; 96365; 96366; 99284; J3480

== ENCOUNTER → 2023-11-20 09:30 | Outpatient (BNVA) | payer MEDICARE, SELFPAY | PROVIDERS: PCP Clinical Nurse Specialist Adult Health; Visit Provider Clinical Nurse Specialist Adult Health | DX: I10 Essential (primary) hypertension (principal); E55.9 Vitamin D deficiency, unspecified; E11.9 Type 2 diabetes mellitus without complications | CPT/HCPCS: 82306; 83036; 85025 ==

== ENCOUNTER → 2024-04-03 09:06 | Outpatient (BNVA) | payer MEDICARE, SELFPAY | PROVIDERS: PCP Clinical Nurse Specialist Adult Health; Visit Provider Clinical Nurse Specialist Adult Health | DX: D50.9 Iron deficiency anemia, unspecified (principal) | CPT/HCPCS: 82270 ==

== ENCOUNTER → 2024-04-16 09:36 | Outpatient (BNVA) | payer MEDICARE, SELFPAY | PROVIDERS: PCP Clinical Nurse Specialist Adult Health; Referring Provider Clinical Nurse Specialist Adult Health; Visit Provider Student in an Organized Health Care Education/Training Program | DX: Z12.11 Encounter for screening for malignant neoplasm of colon (principal) | CPT/HCPCS: 99024; 99204 ==

== ENCOUNTER → 2024-05-25 11:25 | Outpatient (BNVA) | payer MEDICARE, OTHER, SELFPAY | PROVIDERS: PCP Clinical Nurse Specialist Adult Health; Visit Provider Clinical Nurse Specialist Adult Health | DX: E55.9 Vitamin D deficiency, unspecified (principal); D50.0 Iron deficiency anemia secondary to blood loss (chronic) | CPT/HCPCS: 82306; 85025 ==

== ENCOUNTER → 2024-11-02 10:58 | Outpatient (BNVA) | payer MEDICARE, OTHER, SELFPAY | PROVIDERS: PCP Clinical Nurse Specialist Adult Health; Visit Provider Clinical Nurse Specialist Adult Health | DX: I48.11 Longstanding persistent atrial fibrillation (principal); K92.1 Melena; D50.0 Iron deficiency anemia secondary to blood loss (chronic); E78.5 Hyperlipidemia, unspecified; I10 Essential (primary) hypertension | CPT/HCPCS: 80053; 84443; 85025 ==

== ENCOUNTER 2025-04-17 09:56 | Emergency (ER) | payer MEDICARE, OTHER, SELFPAY ==
[2025-04-17 09:57] VITALS: BP 195/123; PULSE 77; RESP 18; TEMP 36.6; O2SAT 96; BMI 23.0
--- NOTE | 2025-04-17 10:00 | CTR_ITS ---
PROCEDURE INFORMATION: Exam: CT Pelvis Without Contrast, Skeleton Exam date and time: 04/17/2025 10:18 AM Age: 85 years old Clinical indication: Injury or trauma; Fall; Blunt trauma (contusions or hematomas); Bilateral; Pelvic region; Prior surgery; Surgery date: 6+ months; Surgery type: Hip; Additional info: Traumatic pelvic pain, left hip pain TECHNIQUE: Imaging protocol: Computed tomography of the pelvis without contrast. Exam focused on the skeleton. Radiation optimization: All CT scans at this facility use at least one of these dose optimization techniques: automated exposure control; mA and/or kV adjustment per patient size (includes targeted exams where dose is matched to clinical indication); or iterative reconstruction. COMPARISON: CR XR hip RT 2-3V wo/w pel* [id number] 04/06/2021 10:31 AM RADIATION DOSE METRICS: Total DLP (mGy-cm): 912.02 FINDINGS: Bones/joints: The bones are osteopenic which limits the sensitivity of CT. The patient is post right hip arthroplasty. There is no FX or acute displaced fracture or dislocation. There is mild joint space narrowing about the left hip, endplate sclerosis and osteophytosis. Soft tissues: There is a high-riding left testis. Small fat containing left inguinal hernias noted which appears to have been treated with hernia repair. CT/CT pelvis wo con [id number] IMPRESSION: Osteopenia, postsurgical and degenerative change in the pelvis. If there remains clinical suspicion for occult nondisplaced fracture, suggest MRI of the pelvis to further assess.
--- NOTE | 2025-04-17 10:00 | CTR_ITS ---
PROCEDURE INFORMATION: Exam: CT Head Without Contrast Exam date and time: 04/17/2025 10:14 AM Age: 85 years old Clinical indication: Injury or trauma; Fall; Blunt trauma (contusions or hematomas); Additional info: Multiple falls, anticoagulated TECHNIQUE: Imaging protocol: Computed tomography of the head without contrast. Radiation optimization: All CT scans at this facility use at least one of these dose optimization techniques: automated exposure control; mA and/or kV adjustment per patient size (includes targeted exams where dose is matched to clinical indication); or iterative reconstruction. COMPARISON: CT head wo con* [id number] 08/03/2020 8:10 PM RADIATION DOSE METRICS: Total DLP (mGy-cm): 1131.58 FINDINGS: Brain: There is no mass effect, midline shift, acute hemorrhage, extra-axial fluid collection or acute lobar infarct. Patchy hemispheric white matter hypodensity likely represents chronic microvascular ischemic change. 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 Cerebral ventricles: No ventriculomegaly. Paranasal sinuses: Mucosal thickening is noted within ethmoid air cells. Mastoid air cells: Visualized mastoid air cells are well aerated. Bones: Unremarkable. No acute fracture. Soft tissues: Unremarkable. CT/CT head wo con* [id number] IMPRESSION: No acute intracranial process.
--- NOTE | 2025-04-17 10:00 | CTR_ITS ---
PROCEDURE INFORMATION: Exam: CT Lumbar Spine Without Contrast Exam date and time: 04/17/2025 10:18 AM Age: 85 years old Clinical indication: Injury or trauma; Fall; Blunt trauma (contusions or hematomas); Prior surgery; Surgery date: 6+ months; Surgery type: Hip; Additional info: Low back pain TECHNIQUE: Imaging protocol: Computed tomography of the lumbar spine without contrast. Radiation optimization: All CT scans at this facility use at least one of these dose optimization techniques: automated exposure control; mA and/or kV adjustment per patient size (includes targeted exams where dose is matched to clinical indication); or iterative reconstruction. COMPARISON: CR XR lumbar spine 2-3V* [id number] 08/03/2020 12:32 PM RADIATION DOSE METRICS: Total DLP (mGy-cm): 912.02 FINDINGS: Bones/joints: There is acute fracture along the upper left side of L1 extending obliquely across the vertebral body to the lower right side. There is no loss of height. There is moderate compression of upper half of L3 with mild retropulsion of bone which is more severe than on the prior radiograph. The bones are osteopenic. There is a biconvex scoliosis of the lumbar spine, upper Imvexxy projects to the right centered at L2 with a Hendricks angle measuring 6 degrees, low convexity projecting to the left centered at L4 with Hendricks angle measuring 11 degrees. Lumbar spondylosis is noted with disc bulging, facet arthropathy and ligamentous thickening, most severe at L4-L5 where there is moderate to severe canal narrowing and neural foraminal stenosis. Retropulsion of bone at the upper L3 level causes mild flattening the anterior thecal sac. Kidneys and ureters: Incidental note is made of several renal cysts, incompletely imaged. No further imaging follow-up is necessary. Soft tissues: Unremarkable. CT/CT lumbar spine wo con* [id number] IMPRESSION: Acute upper L1 acute fracture. Worsened upper L3 compression deformity. Suggest MRI of the lumbar spine without contrast to assess acuity. Underlying osteopenia, biconvex scoliosis and spondylosis. COMMENTS: Consistent with the [employer]'s Incidental Findings Committee white paper (J Am Will Radiol 2018): Any incidental renal lesion less than 1 cm or classified as too small to characterize, or any incidental cystic renal lesion characterized as simple-appearing, is likely benign. No follow-up imaging is recommended for these lesions per consensus recommendations based on imaging criteria.
--- NOTE | 2025-04-17 10:05 | W.ED.EXTPRO ---
HPI - Extremity Problem General: Chief complaint: Extremity Injury, Lower Stated complaint: FALL -LEFT HIP AND HAND PAIN Time Seen by Provider: 04/17/25 09:58 History of Present Illness: 85-year-old man with a history of atrial fibrillation, pacemaker placement, chronic anticoagulation on Xarelto, hypertension and hyperlipidemia who presents emergency room after having multiple falls. He says he just gives out suddenly sometimes. He denies any head injury. He is having some mild pain in his left hip and low back. He has a skin tear on his left hand. No altered mental status. No focal motor deficits. He has been hypertensive on presentation. No fevers. No cough. No abdominal pain. No vomiting. Related Data Home Medications ?Medication ?Instructions ?Recorded ?Confirmed calcium 600 mg (as carbonate)-vit 1 tab PO BID@08/03/20 04/17/25 D3 10 mcg (400 unit)-minerals tablet cholecalciferol (vitamin D3) 25 25 mcg PO DAILY@08/03/20 04/17/25 mcg (1,000 unit) capsule (Vitamin D3) magnesium 250 mg tablet 400 mg PO BID@08/03/20 04/17/25 psyllium husk 3 gram/5.4 gram oral 1 tbsp PO DAILY PRN Constipation 05/22/23 04/17/25 powder sennosides 8.6 mg-docusate sodium 2 tab-cap PO BID PRN Constipation 05/22/23 04/17/25 50 mg tablet (Stool Softener-Stimulant Laxative) amiodarone 100 mg tablet 150 mg PO DAILY 04/17/25 04/17/25 atorvastatin 40 mg tablet 40 mg PO BEDTIME 04/17/25 04/17/25 carvedilol 6.25 mg tablet 6.25 mg PO BID 04/17/25 04/17/25 docusate sodium 100 mg capsule 100 mg PO BID PRN Constipation 04/17/25 04/17/25 rivaroxaban 15 mg tablet (Xarelto) 15 mg PO QPM 04/17/25 04/17/25 Previous Rx's ?Medication ?Instructions ?Recorded multivitamin 1 tab PO DAILY #90 tabs 06/10/23 Allergies Allergy/AdvReac Type Severity Reaction Status Date / Time No Known Allergies Allergy Verified 11/03/24 11:32 Review of Systems Narrative: Constitutional symptoms: Negative except as documented in HPI. Skin symptoms: Negative except as documented in HPI. Eye symptoms: Negative except as documented in HPI. ENMT symptoms: Negative except as documented in HPI. Respiratory symptoms: Negative except as documented in HPI. Cardiovascular symptoms: Negative except as documented in HPI. Gastrointestinal symptoms: Negative except as documented in HPI. Genitourinary symptoms: Negative except as documented in HPI. Musculoskeletal symptoms: Negative except as documented in HPI. Neurologic symptoms: Negative except as documented in HPI. Psychiatric symptoms: Negative except as documented in HPI. Endocrine symptoms: Negative except as documented in HPI. PFSH ED PFSH: Medical History (Updated 04/17/25 @ 13:17 by Jenny Mckenzie MD) Hypertension Pacemaker Mitral insufficiency Vitamin D deficiency A-fib Chronic anticoagulation Hyperlipidemia Chronic constipation Vertebral fracture Bradycardia Surgical History Hx of fracture of right hip with surgery 2022 History of hernia surgery Family History Other Hypertension Denies family history of Colon cancer Diabetes mellitus, type 2 CAD (coronary artery disease) Social History Smoking and tobacco/nicotine status: never used tobacco/nicotine Alcohol intake: never Substance/Drug Use: never Household members: spouse Marital status: Current occupational status: retired 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 Skin: Warm, dry. Skin tear on left hand Head: Normocephalic, atraumatic. Neck: Supple, trachea midline. Eye: Extraocular movements are intact. Ears, nose, mouth and throat: mucosa moist. Cardiovascular: Regular, Normal peripheral perfusion. Respiratory: Lungs are clear to auscultation, respirations are non-labored, breath sounds are equal, Symmetrical chest wall expansion. Gastrointestinal: Soft, Nontender, Non distended Musculoskeletal: Normal ROM, no deformity. No shortening or rotation of the left leg. Neurological: Alert and oriented, No focal neurological deficit observed. Psychiatric: Cooperative, appropriate mood & affect. Course Vital Signs: Vital signs: Vital Signs Temperature 97.8 F 04/17/25 09:57 Pulse Rate 61 04/17/25 12:03 Respiratory Rate 18 04/17/25 09:57 Blood Pressure 180/109 04/17/25 12:03 Pulse Oximetry 95 04/17/25 12:03 Oxygen Delivery Me thod Room Air 04/17/25 12:03 MDM - Extremity (Nontraumatic) Medical Decision Making Medical decision making: Differential diagnosis for the patient with fall and hip pain includes but not limited to and based on the above HPI, review of systems and physical exam: Hip fracture, femur fracture, pelvic fractures including pubic rami and acetabular fractures, hip strain, hip contusion Differential diagnosis for patient presenting with generalized weakness including but not limited to and based on the above HPI, review of systems and physical exam: Sepsis. Dehydration. Renal failure. Electrolyte abnormalities. Anemia. Congestive heart failure. Hypotension. Coronary syndrome. Hepatitis. Cirrhosis. Infections such as pneumonia, urinary tract infection, Tick bourne illness, Cellulitis, Viral infections including influenza and Covid-19. Workup: labwork and lab/exam driven imaging ordered to evaluate, rule in and rule out above pathologies. CT head: No acute intracranial process. no intracranial hemorrhage, no evidence of infarct. no evidence of acute fracture.This was reviewed and interpreted by myself the ER physician. CT of the lumbar spine: Vertebral compression fracture that might be worsening. Recommend MRI. This can be done as an outpatient.. Good alignment. No step-offs. This was reviewed and interpreted by myself the emergency room physician. CT of the pelvis without contrast: No acute process. Osteopenia. This was reviewed and interpreted by myself the emergency room physician. I also reviewed the radiology report. Lab Review: Laboratory results were reviewed and interpreted by myself the emergency room physician. No leukocytosis. No anemia. Stable chronic renal insufficiency. No urinary tract infection I reviewed the patient's medical record. Reexamination: Patient remained stable. No increased work of breathing. No altered mental status. No focal motor deficits. Assessment and plan: Vertebral compression fracture Falls - Discharged home - Discussed plan with patient. Answered any questions. - Evaluation and treatment of this problem were appropriate in the emergency setting. Lab Data 04/17/25 09:25 04/17/25 09:[address] 04/17/25 10:00 IMPRESSION: No acute intracranial process. Lumbar Spine CT 04/17/25 10:00 IMPRESSION: Acute upper L1 acute fracture. Worsened upper L3 compression deformity. Suggest MRI of the lumbar spine without contrast to assess acuity. Underlying osteopenia, biconvex scoliosis and spondylosis. COMMENTS: Consistent with the [employer]'s Incidental Findings Committee white paper (J Am Will Radiol 2018): Any incidental renal lesion less than 1 cm or classified as too small to characterize, or any incidental cystic renal lesion characterized as simple-appearing, is likely benign. No follow-up imaging is recommended for these lesions per consensus recommendations based on imaging criteria. Pelvis CT 04/17/25 10:00 IMPRESSION: Osteopenia, postsurgical and degenerative change in the pelvis. If there remains clinical suspicion for occult nondisplaced fracture, suggest MRI of the pelvis to further assess. Laboratory Results WBC 9.04 10^3/uL (3.29-11.43) 04/17/25 09: RBC 4.84 10^6/uL (3.85-5.65) 04/17/25 09: Hgb 12.20 g/dL (11.27-16.99) 04/17/25 09: Hct 38.2 % (37-53) 04/17/25 09: MCV 78.9 fl (82-101) L 04/17/25 09: MCH 25.2 pg (27-33) L 04/17/25 09: MCHC 31.9 g/dL (30-55) 04/17/25 09: RDW 15.2 % (12.1-15.1) H 04/17/25 09:25 Plt Count 212 10^3/cmm (157-399) 04/17/25 09: MPV 9.2 fL (7.4-10.4) 04/17/25 09:25 Neut % (Auto) 77.8 % 04/17/25 09:25 Lymph % (Auto) 12.2 % 04/17/25 09:25 [place] % (Auto) 5.8 % 04/17/25 09:25 Eos % (Auto) 2.1 % 04/17/25 09:25 Baso % (Auto) 0.3 % 04/17/25:25 Neut # (Auto) 7.04 10^3/uL (1.8-7.7) 04/17/25 09:25 Lymph # (Auto) 1.1 10^3/uL (0.8-4.8) 04/17/25 09:25 [place] # (Auto) 0.5 10^3/uL (0.2-0.9) 04/17/25 09:25 Eos # (Auto) 0.2 10^3/uL (0.0-0.8) 04/17/25 09:25 Baso # (Auto) 0.0 10^3/uL (0.0-0.1) 04/17/25 09:25 Nucleated RBC % (auto) 0 % 04/17/25 09: Nucleated RBCs # 0.0 /100WBC 04/17/25 09:25 Sodium 138 mmol/L (136-145) 04/17/25 09: Potassium 4.0 mmol/L (3.5-5.1) 04/17/25 09: Chloride 102 mmol/L (98-107) 04/17/25: Carbon Dioxide 25 mmol/L (22-29) 04/17/25: Anion Gap 15.0 (5-19) 04/17/25:25 BUN 16 mg/dL (8-23) 04/17/25 09:25 Creatinine 1.4 mg/dL (0.7-1.2) H 04/17/25 09:25 GFR Calculation Not Reportable 04/17/25: Glucose 111 mg/dL (65-115) 04/17/25 09:25 Calculated Osmolality 288 mOsm/kg (285-295) 04/17/25: Calcium 9.6 mg/dL (8.5-10.5) 04/17/25 09:25 Total Bilirubin 0.6 mg/dL (0.15-1.2) 04/17/25 09:25 AST 34 U/L (0-40) 04/17/25:25 ALT 31 U/L (0-41) 04/17/25:25 Alkaline Phosphatase 68 U/L (40-130) 04/17/25: Total Protein 7.5 g/dL (6.6-8.7) 04/17/25: Albumin 4.2 g/dL (3.5-5.2) 04/17/25: Globulin 3.3 g/dL (1.3-4.6) 04/17/25 09:25 Urine Color Yellow (Yellow) 04/17/25 10:45 Urine Appearance Clear (CLEAR) 04/17/25 10:45 Urine pH 8.0 (5-7) A 04/17/25 10:45 Ur Specific [place] 1.009 (1.005-1.030) 04/17/25 10:45 Urine Protein Trace (Negative) A 04/17/25 10:45 Urine Glucose (UA) Negative (Normal) 04/17/25 10:45 Urine Ketones Negative (Negative) 04/17/25 10:45 Urine Blood Negative (Negative) 04/17/25 10:45 Urine Nitrate Negative (Negative) 04/17/25 10:45 Urine Bilirubin Negative (Negative) 04/17/25 10:45 Urine Urobilinogen 0.2 mg/dL (Negative) 04/17/25 10:45 Ur Leukocyte Esterase Negative (Negative) 04/17/25 10:45 Urine RBC 0-2 /hpf (0-2) 04/17/25 10:45 Urine WBC 0-5 /hpf (0-5) 04/17/25 10:45 Ur Squamous Epith Cells 0-5 /hpf (0-5) 04/17/25 10:45 Amorphous Sediment Not Reportable 04/17/25 10:45 Urine Bacteria None seen /hpf (NONE) 04/17/25 10:45 Hyaline Casts 1.21 /lpf 04/17/25 10:45 All radiology interpretation(s) finalized by discharge Discharge Plan Discharge Patient Disposition: Home Clinical Impression: Vertebral compression fracture, Multiple falls Condition: Stable Prescriptions: No Action psyllium husk 3 gram/5.4 gram powder 1 tbsp PO DAILY PRN (Reason: Constipation) Rx Instructions: mix into at least 8 oz of water or juice before administering sennosides-docusate sodium [Stool Softener-Stimulant Laxat] 8.6-50 mg tablet 2 tab-cap PO BID PRN (Reason: Constipation) multivitamin Tablet 1 tab PO DAILY Qty: 90 3RF magnesium 250 mg Tablet 400 mg PO BID@09,18 cholecalciferol (vitamin D3) [Vitamin D3] 25 mcg (1,000 unit) Capsule 25 mcg PO DAILY@18 calcium carbonate-vit D3-min 600 mg calcium- 400 unit Tablet 1 tab PO BID@09 carvedilol 6.25 mg tablet 6.25 mg PO BID amiodarone 100 mg tablet 150 mg PO DAILY Xarelto 15 mg tablet 15 mg PO QPM atorvastatin 40 mg tablet 40 mg PO BEDTIME docusate sodium 100 mg capsule 100 mg PO BID PRN (Reason: Constipation) Discharge Orders: Discharge ED (Routine); Ordered 04/17/25 Ordered By: Jenny Mckenzie Referrals: Hossein Arevalo DO [Physician, Orthopedics] Referral Note: Please call for an appointment with Dr. Arevalo concerning a lumbar vertebral compression fracture. This needs follow-up. Miquel Chen NP [Primary Care Provider, Family Practice] Patient Instructions: Opioid Safety, Pain Management, Patient Portal & Kaleb Instructions Activity Restrictions/Additional Instructions: Thank you for choosing [facility] for your healthcare needs today. You have been screened and evaluated and felt safe for discharge. Health conditions do change or evolve sometimes and as such it is important that you follow up with your Primary Doctor to be re checked, 3-5 days is a general good time frame for follow up. You are always welcome to return to the ED for re assessment if your symptoms are worsening or you have new concerns Print Language: Citizen Of [place] Coding Level of Care Code ED Executive Advisor for Hugo Florence
--- NOTE | 2025-04-17 10:08 | ECG_ITS ---
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
[2025-04-17 10:09] LABS: Hematocrit 38.2 % (37-53); Hemoglobin 12.20 g/dL (11.27-16.99); Mean Corpuscular HGB Conc 31.9 g/dL (30-55); Mean Corpuscular Hemoglobin 25.2 pg (27-33); Mean Corpuscular Volume 78.9 fl (82-101); Nucleated Red Blood Cells % 0 %; Platelet Count 212 10^3/cmm (157-399); Red Blood Count 4.84 10^6/uL (3.85-5.65); White Blood Count 9.04 10^3/uL (3.29-11.43)
--- OUTSIDE RECORDS SUMMARY | 2025-04-17 10:10 | XMS_ITS | Encounter Summary ---
Author Organization [facility] Address [address] [place] [address] Care Team Providers Care Manager Environmental Affairs Name Role Phone Corey Queen Primary Care Provider [phone] Reason for Visit * Reason Comments Med Refill Encounter Details Date Type Department Care Team (Late st Contact Info) Description 04/12/2025 Refill [facility] [address] [facility] [address] [place] [phone] Cortes Brooks MD [address] [facility] [address] [place] [address] Social History Tobacco Use Types Packs/Day Years Used Date Smoking Tobacco: Never Passive Smoke Exposure: Never Smokeless Tobacco: Never Alcohol Use Standard Drinks/Week Comments Not Currently 0 (1 standard drink = 0.6 oz pur e alcohol) Sex and Gender Information Value Date Recorded Sex Assigned at Not on file Legal Sex Male 1:38 PM [employer]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 Brooks documented in this encounter Plan of Treatment Upcoming Encounters Date Type Department Care Team (Late Contact Info) Description 08/25/2025 9:45 AM COMBIN[employer] W[employer]OW INSTALLER Office Visit [facility]3] Cardiology [facility] [place] [facility] [address] [place] [address] Cortes Brooks MD [address] [place] [address] documented as of this encounter Visit Diagnoses Not on filedocumented in this encounter Care Teams Manager Environmental Affairs Relationship Specialty Start Date End Date Corey Queen DO [address] [place] [id number] PCP - General Family Practice 07/19/22 documented as of this encounter
--- OUTSIDE RECORDS SUMMARY | 2025-04-17 10:10 | XMS_ITS | Clinical Summary ---
Author Organization [facility] Address [address] [facility] Attn: Epic Prelude ADT [place] [address] Care Team Providers Care Wares Sorter Name Role Phone Corey Queen Primary Care Provider [phone] Allergies Active Allergy Reactions Criticality Noted Date Comments Etomidate Unknown Low 04/17/2024 Jerking motions Medications calcium-vitami n D3 (CALTRATE 600+D) 600 mg-5 mcg (200 unit) Tablet Take 1 Tablet by mouth 2 times daily. Active magnesium oxide (MAG-OX) 400 mg (241.3 mg magnesium) tablet Take 800 mg by mouth 2 times daily. Active cholecalcifero l, Vitamin D3, (VITAMIN D3) 25 mcg (1,000 unit) Capsule Take 1,000 Units by mouth daily. Active ferrous sulfate 325 mg (65 mg iron) tablet Take 325 mg by mouth daily. Active carvediloL (COREG) 6.25 mg tablet TAKE 1 TABLET BY MOUTH TWICE A DAY 180 Tablet 3 5 Active rivaroxaban (Xarelto) 15 mg Tablet TAKE 1 TABLET BY MOUTH WITH EVERY EVENING MEAL 90 Tablet 3 5 Active atorvastatin (LIPITOR) 40 mg tablet TAKE 1 TABLET BY MOUTH EVERY DAY IN THE EVENING 90 Tablet 3 5 Active amiodarone (CORDARONE) 100 mg Tablet TAKE 1 & 1/2 TABLETS BY MOUTH ONCED DAILY 135 Tablet 3 5 Active amiodarone (CORDARONE) 100 mg Tablet take 1 and 1/2 tablets by mouth once daily 135 Tablet 3 10/04/13/20 25 Discontinued Active Problems Problem Noted Date Diagnosed Date Encounter for medication management 02/22/2025 Anticoagulated by anticoagulation treatment 02/09 Anemia, unspecified 03/27/2024 Cardiac pacemaker in situ 03/27/2024 Non-rheumatic tricuspid valve insufficiency 03/12 Chronic kidney disease, stage II (mild) 08/22/19 23 Chronic hypotension 08/17/2020 Bradycardia 08/17/2020 Mitral insufficiency 12/30/2019 USP (current) use of anticoagulants 2018 Vitamin D deficiency 02/20/2019 Hypertension, essential 02/19/2019 Mixed hyperlipidemia 07/23/2018 Chronic atrial fibrillation 04/26/2016 Encounters Date Type Department Care Team Description 04/13/2025 External Device Data [facility] ABSTRACTION Provider, Abstract 04/12/2025 Refill [facility] [address] [place] [address] Cortes Brooks MD 03/30/2025 External Device Data [facility]STRACTION Provider, Abstract 03/17/2025 External Device Data [facility] ABSTRACTION Provider, Abstract 03/16/2025 External Device Data [facility]STRACTION Provider, Abstract 02/24/2025 External Device Data [facility]STRACTION Provider, Abstract 02/23/2025 External Device Data [facility] ABSTRACTION Provider, Abstract 02/22/2025 10:30 AM CDT Office Visit [facility] [address] [place] [address] Cortes Brooks MD USP current use of antiarrhythmic medical therapy (Primary Dx); Anticoagulated by anticoagulation treatment; Encounter for medication management; Hypertension, essential; Cardiac pacemaker in situ; Anemia, unspecified type; ad terminal makeup operator (current) use of anticoagulants from Last 3 Months Family History Medical History Relation Name Comments Hypertension Father Hypertension Mother Relation Name Status Comments Father Mother Social History Tobacco Use Types Packs/Day Years Used Date Smoking Tobacco: Never Passive Smoke Exposure: Never Smokeless Tobacco: Never Tobacco Cessation:Counseling Given: No Alcohol Use Standard Drinks/Week Comments Not Currently 0 (1 standard drink = 0.6 oz pur e alcohol) Sex and Gender Information Value Date Recorded Sex Assigned at Not on file 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 Gender Identity Not on file Sexual Orientation Not on file Last Filed Vital Signs Vital Sign Reading Time Taken Comments Blood Pressure 140/72 02/22/2025 10:05 AM CDT Pulse 74 02/22/2025 10:05 AM CDT Temperature - - Respiratory Rate 12 04/17/2024 1:29 PM CDT Oxygen Saturation 97% 02/22/2025 10:05 AM CDT Inhaled Oxygen Concentration - - Weight 79.4 kg (175 lb) 02/22/2025 10:05 AM CDT Height 182.9 cm (6') 02/22/2025 10:05 AM CDT Body Mass Index 23.73 02/22/2025 10:05 AM CDT Plan of Treatment Upcoming Encounters Date Type Department Care Team (Late st Contact Info) Description 08/25/2025 9:45 AM BABY 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 WORKER Office Visit [facility] [address] [address] Cortes Brooks MD [address] [facility] [address] [place] [address] Health Maintenance Due Date Last Done Comments DTAP/TDAP/TD VACCINES (1 - Tdap) 1959 PNEUMOCOCCAL VACCINE 50+ YEA RS (1 of 2 - PCV) 1959 Traditional Medicare (ACO) A nnual Wellness Visit 1959 ZOSTER VACCINE (1 of 2) 02/09/1988 RSV VACCINE (60+ or ) (1 - 1-dose 75+ series) 2013 INFLUENZA VACCINE (#1) 2025 05/06/2023, 2020 COVID-19 Vaccine (3 - season) 2025, 02/17/2021 Procedures Procedure Name Priority Date/Time Associated Diagnosis Comments WY PROGRAM EVAL IMPLANTABLE IN PERSN DUAL LD PACER Routine 02/22/2025 11:13 AM CDT USP current use of antiarrhythmic medical therapy Anticoagulated by anticoagulation treatment Encounter for medication management Hypertension, essential Cardiac pacemaker in situ Anemia, unspecified type USP (current) use of anticoagulants EKG 12 LEAD UNIT PERFORMED Routine 02/22/2025 11:12 AM CDT ad terminal makeup operator current use of antiarrhythmic medical therapy Anticoagulated by anticoagulation treatment Encounter for medication management Hypertension, essential Cardiac pacemaker in situ Anemia, unspecified type ad terminal makeup operator (current) use of anticoagulants from Last 3 Months Results * WY PROGRAM EVAL IMPLANTABLE IN PERSN DUAL LD PACER (02/22/2025 11:13 AM CDT) Narrative [facility] - 02/22/2025 11:13 AM CDT Cortes Brooks MD 02/22/2025 11:20 AM Office Device Check Date of Procedure: 02/22/[address] Cortes Brooks Device Seed Buyer: [employer] Permanent Programming Change(s)? Yes Comments: Greater than 9 years longevity on device please see scanned report reprogramming performed. 1 episode of atrial fibrillation noted on September 2024 lasting for approximately 34 seconds. Please see scan for details. Procedure Note Cortes Brooks MD - 02/22/2025 11:13 AM CDT Office Device Check Date of Procedure: 02/22/[address] Cortes Brooks Device Seed Buyer: [employer] Permanent Programming Change(s)? Yes Comments: Greater than 9 years longevity on device please see scannedreport reprogramming performed. 1 episode of atrial fibrillation noted onSeptember 2024 lasting for approximately 34 seconds. Please see scan for details. us Cortes Brooks MD CARDIAC SERVICES ORDERABLES Fi nal Result [facility] [address] [facility] [place], [place] [address] * EKG 12 LEAD UNIT PERFORMED (02/22/2025 11:12 AM CDT) Narrative [facility] - 02/22/2025 11:12 AM CDT Cortes Brooks MD 02/22/2025 11:20 AM Normal sinus rhythm QT corrected at 480 ms. Otherwise normal ECG Procedure Note Cortes Brooks MD - 02/22/2025 11:12 AM CDT Normal sinus rhythm QT corrected at 480 ms. Otherwise normal ECG us Cortes Brooks MD ECG ORDERABLES Final Result from Last 3 Months Insurance [facility] MEDICARE PART A AND B Care Teams Wares Sorter Relationship Specialty Start Date End Date Corey Queen DO [address] [place] [id number] PCP - General Family Practice 07/19/22
--- OUTSIDE RECORDS SUMMARY | 2025-04-17 10:10 | XMS_ITS | Encounter Summary ---
Author Organization [facility] Address [address] [place] [address] Care Team Providers Care Travel Guide Name Role Phone Corey Queen DO Primary Care Provider [phone] Encounter Details Date Type Department Care Team (Late st Contact Info) Description 04/13/2025 External Device Data [facility] ABSTRACTION Provider, Abstract NO ADDRESS ON FILE Social History Tobacco Use Types Packs/Day Years Used Date Smoking Tobacco: Never Passive Smoke Exposure: Never Smokeless Tobacco: Never Alcohol Use Standard Drinks/Week Comments Not Currently 0 (1 standard drink = 0.6 oz pur e alcohol) Sex and Gender Information Value Date Recorded Sex Assigned at Not on file 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 Gender Identity Not on file Sexual Orientation Not on file documented as of this encounter Plan of Treatment Upcoming Encounters Date Type Department Care Team (Late st Contact Info) Description 08/25/2025 9:45 AM 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
[2025-04-17 10:25] LABS: Alanine Aminotransferase 31 U/L (0-41); Albumin Level 4.2 g/dL (3.5-5.2); Alkaline Phosphatase 68 U/L (40-130); Anion Gap 15.0 (5-19); Aspartate Amino Transferase 34 U/L (0-40); Blood Urea Nitrogen 16 mg/dL (8-23); Calcium 9.6 mg/dL (8.5-10.5); Carbon Dioxide 25 mmol/L (22-29); Chloride 102 mmol/L (98-107); Globulin 3.3 g/dL (1.3-4.6); Glucose 111 mg/dL (65-115); Osmolality Calculated 288 mOsm/kg (285-295); Potassium 4.0 mmol/L (3.5-5.1); Sodium 138 mmol/L (136-145); Total Protein 7.5 g/dL (6.6-8.7)
[2025-04-17 10:30] LABS: Creatinine Clr Calc Pharmacy 40.6987
[2025-04-17 10:56] LABS: Glucose Urine UA Negative (Normal); Nitrate Urine Negative (Negative); Specific Gravity, Urine 1.009 (1.005-1.030)
[2025-04-17 12:03] VITALS: BP 180/109; PULSE 61; O2SAT 95
--- NOTE | 2025-04-17 12:13 | PC.PHAR ---
Pt has had dose changes on several medications. Pt has several otc medications for constipation and uses as needed but not all together.
[2025-04-17 13:33] VITALS: PULSE 63; O2SAT 95
== END 2025-04-17 13:34 | disposition home or self-care (01) ==
PROVIDERS: Emergency Provider Emergency Medicine; PCP Clinical Nurse Specialist Adult Health
DX: M79.642 Pain in left hand (principal); S32.010A Wedge compression fracture of first lumbar vertebra, initial encounter for closed fracture; W19.XXXA Unspecified fall, initial encounter; Z95.0 Presence of cardiac pacemaker; E78.5 Hyperlipidemia, unspecified; I10 Essential (primary) hypertension; Z79.01 Long term (current) use of anticoagulants
CPT/HCPCS: 70450; 72131; 72192; 80053; 81001; 85025; 93005; 99284

== ENCOUNTER → 2025-05-06 09:58 | Outpatient (BNVA) | payer MEDICARE, OTHER, SELFPAY | PROVIDERS: PCP Clinical Nurse Specialist Adult Health; Visit Provider Orthopaedic Surgery | DX: S32.010A Wedge compression fracture of first lumbar vertebra, initial encounter for closed fracture (principal); X58.XXXA Exposure to other specified factors, initial encounter; Z09 Encounter for follow-up examination after completed treatment for conditions other than malignant neoplasm | CPT/HCPCS: 72100; 99203 ==

== ENCOUNTER 2025-05-13 06:57 | Outpatient (CLI) | payer MEDICARE, OTHER, SELFPAY ==
--- NOTE | 2025-05-13 07:00 | NM_ITS ---
WS: [id number] NUCLEAR MEDICINE BONE SCAN Radiopharmaceutical: 24.2 Tc-99m MDP mCi IV Injection site: Antecubital Postinjection imaging delay: 1 hr CLINICAL INFORMATION: Fracture vertabrae FINDINGS: Bone lesions: Acute compression fracture L1 with radiotracer uptake. No other suspicious foci of radiotracer uptake. No radiotracer uptake in L3. Soft tissue contours: Normal. Kidneys: Normal. Other findings: None. NM/NM bone scan whole body* [id number] IMPRESSION: Acute compression fracture L1 vertebral body with radiotracer uptake.
== END 2025-05-13 06:58 | disposition home or self-care (01) ==
LOC: RAD 07:01
PROVIDERS: PCP Clinical Nurse Specialist Adult Health; Visit Provider Orthopaedic Surgery
DX: M48.56XA Collapsed vertebra, not elsewhere classified, lumbar region, initial encounter for fracture (principal); X58.XXXA Exposure to other specified factors, initial encounter
CPT/HCPCS: 78306; A9561

== ENCOUNTER → 2025-05-20 07:59 | Outpatient (BNVA) | payer MEDICARE, OTHER, SELFPAY | PROVIDERS: PCP Clinical Nurse Specialist Adult Health; Visit Provider Orthopaedic Surgery | DX: S32.010A Wedge compression fracture of first lumbar vertebra, initial encounter for closed fracture (principal); W19.XXXA Unspecified fall, initial encounter | CPT/HCPCS: 99213 ==

== ENCOUNTER → 2025-05-25 09:57 | Outpatient (BNVA) | payer MEDICARE, OTHER, SELFPAY | PROVIDERS: PCP Clinical Nurse Specialist Adult Health; Visit Provider Clinical Nurse Specialist Adult Health | DX: R35.0 Frequency of micturition (principal) | CPT/HCPCS: 81000; 87086 ==

== ENCOUNTER → 2025-06-24 10:34 | Outpatient (BNVA) | payer MEDICARE, OTHER, SELFPAY | PROVIDERS: PCP Clinical Nurse Specialist Adult Health; Visit Provider Orthopaedic Surgery | DX: S32.010D Wedge compression fracture of first lumbar vertebra, subsequent encounter for fracture with routine healing (principal); X58.XXXD Exposure to other specified factors, subsequent encounter | CPT/HCPCS: 72100; 99024; 99213 ==